=== PATIENT | female | born 1955 | race Caucasian/White ===

== ENCOUNTER 2016-11-16 19:54 | Inpatient (IN) | payer MEDICARE, MEDICAID ==
[2016-11-16 20:32] LABS: Hematocrit 43 % (35-47); Hemoglobin 14.1 g/dl (12.0-16.0); Mean Corpuscular HGB Conc 33 g/dl (31-36); Mean Corpuscular Hemoglobin 28 pg (27-31); Mean Corpuscular Volume 86 fL (80-97); Mean Platelet Volume 9 um3 (7.4-10.4); Red Blood Count 4.98 10^6/ul (4.0-5.4); Red Cell Distribution Width 14 % (10.5-15); White Blood Count 19.4 10^3/ul (3.5-10.8)
[2016-11-16 20:36] LABS: Comments Flag Yes
[2016-11-16 20:49] LABS: Troponin I 0.03 ng/mL (<0.04)
[2016-11-16 20:50] LABS: Albumin 3.9 g/dL (3.2-5.2); BUN/Creatinine Ratio 23.1 (8-20); EGFR Non-African American 93.3 (>60); Globulin 3.4 g/dL (2-4); Potassium 3.9 mmol/L (3.5-5.0); Total Bilirubin 1.2 mg/dL (0.2-1.0); Total Protein 7.3 g/dL (6.4-8.9)
--- NOTE | 2016-11-16 20:50 | ED ---
Librado Starkey Benjamin, scribed for Nimesh Griffin MD on 11/16/16 at 2014 . Altered Mental Status - HPI Summary HPI Summary: 60yo female BIB EMS from home for intermittently becoming unresponsive throughout the day that has been worsening. Pt has hx of MS. Very limited information was obtained by EMT, and pts baseline neurological state is unknown exactly, but per friend pt is awake and somewhat responsive. Per EMT, pt was mildly hypoxic but afebrile en route. LEVEL 5 CAVEAT. - History Of Current Complaint Chief Complaint: EDRespiratoryDistress Stated Complaint: UNRESPONSIVE Time Seen by Provider: 11/16/16 20:06 Hx Obtained From: EMS Hx From Patient Unobtainable Due To: Altered Mental Status Onset/Duration: Unknown, Still Present Timing: Intermittent Severity Initially: Moderate Severity Currently: Moderate Character: Responsiveness Aggravating Factor(s): Unknown Alleviating Factor(s): Unknown PMH/Surg Hx/FS Hx/Imm Hx Endocrine/Hematology History: Reports: Hx Anticoagulant Therapy - coumadin Respiratory History: Reports: Hx Pneumonia, Other Respiratory Problems/ Disorders - MS Musculoskeletal History: Reports: Other Musculoskeletal History - MS Neurological History: Reports: Other Neuro Impairments/Disorders - ms Infectious Disease History: Unable to Obtain/Confirm Infectious Disease History: Denies: Traveled Outside the [place] in Last 30 Days - Family History Known Family History: Positive: Unknown - LEVEL 5 CAVEAT - Social History Occupation: Disabled Lives: Alone Alcohol Use: None Substance Use Type: Reports: None Review of Systems - ROS Summary Review of Systems Summary: LEVEL 5 CAVEAT All Other Systems Reviewed And Are Negative: No Physical Exam Triage Information Reviewed: Yes Vital Signs On Initial Exam: Initial Vitals Temp Pulse Resp BP Pulse Ox 99.3 F 99 16 95/70 95 11/16/16 19:54 11/16/16 19:54 11/16/16 19:54 11/16/16 19:54 11/16/16 19:54 Vital Signs Reviewed: Yes Appearance: Positive: No Pain Distress, Ill-Appearing, Thin Skin: Positive: Warm, Dry Eyes: Positive: JONATHAN ENT: Positive: Hearing grossly normal Neck: Positive: Supple Respiratory/Lung Sounds: Positive: Rhonchi - scattered diffuse bilat Cardiovascular: Positive: RRR Abdomen Description: Positive: Nontender, Soft Psychiatric: Positive: Other - slow to respond Diagnostics - Vital Signs Vital Signs Temp Pulse Resp BP Pulse Ox 11/16/16 19:54 99.3 F 99 16 95/70 95 - Laboratory Lab Results: Lab Results 11/16/16 11/16/16 11/16/16 Range/Units 20:20 20:20 20:20 WBC 19.4 H (3.5-10.8) 10^3/ul RBC 4.98 (4.0-5.4) 10^6/ul Hgb 14.1 (12.0-16.0) g/dl Hct 43 (35-47) % MCV 86 (80-97) fL MCH 28 (27-31) pg MCHC 33 (31-36) g/dl RDW 14 (10.5-15) % Plt Count 244 (150-450) 10^3/ul MPV 9 (7.4-10.4) um3 Neut % (Auto) 83.1 H (38-83) % Lymph % (Auto) 10.6 L (25-47) % [place] % (Auto) 5.7 (1-9) % Eos % (Auto) 0 (0-6) % Baso % (Auto) 0.6 (0-2) % Absolute Neuts (auto) 16.1 H (1.5-7.7) 10^3/ul Absolute Lymphs (auto) 2.1 (1.0-4.8) 10^3/ul Absolute Monos (auto) 1.1 H (0-0.8) 10^3/ul Absolute Eos (auto) 0 (0-0.6) 10^3/ul Absolute Basos (auto) 0.1 (0-0.2) 10^3/ul Absolute Nucleated RBC 0 10^3/ul Nucleated RBC % 0 D-Dimer, Quantitative < 200 (Less Than 230) ng/mL Lactic Acid 1.9 (0.5-2.0) mmol/L Result Diagrams: 11/16/16 20:20 11/16/16 20:20 Lab Statement: Any lab studies that have been ordered have been reviewed, and results considered in the medical decision making process. - EKG 1999. Cardiac Rate: Tachycardia - 100bpm EKG Rhythm: Sinus Tachycardia Altered Mental Statu Course/Dx - Course Course Of Treatment: Discussed with Dr. Maynard (hospitalist) at 2044. - Diagnoses Discharge Diagnoses: Pneumonia - Provider Notifications Instructed by Provider To: Admit As Inpatient Discharge - Discharge Plan Condition: Guarded Disposition: ADMITTED TO [facility] The documentation as recorded by the Librado anderson Benjamin accurately reflects the service I personally performed and the decisions made by me, Nimesh Griffin MD.
--- NOTE | 2016-11-16 21:06 | RAD ---
HISTORY: Shortness of breath COMPARISONS: March 09, 2013 VIEWS: 2: Frontal and lateral views of the chest. The patient is slightly obliqued to the right FINDINGS: CARDIOMEDIASTINAL SILHOUETTE: The cardiomediastinal silhouette is normal. JANIE: The janie are normal. PLEURA: The costophrenic angles are sharp. No pleural abnormalities are noted. LUNG PARENCHYMA: There is patchy alveolar opacification of the left lung base ABDOMEN: The upper abdomen is clear. There is no subphrenic gas. BONES AND SOFT TISSUES: No bone or soft tissue abnormalities are noted. OTHER: None. IMPRESSION: PATCHY LEFT BASILAR ATELECTASIS VERSUS EARLY CONSOLIDATION. RECOMMEND FOLLOW-UP UNTIL RESOLUTION TO EXCLUDE UNDERLYING PULMONARY PARENCHYMAL PATHOLOGY.
[2016-11-16 21:26] LABS: Add Diff/Slide Review? Slide Review Added
[2016-11-16 21:30] LABS: Immature Granulocytes 29 % (0-9); Neutrophil % 59 % (38-83); Toxic Granulation 1+
--- NOTE | 2016-11-16 21:30 | HP ---
H&P (Free Text) History and Physical: PCP: Terese John MD Date/Time of Evaluation: 11/16/2016 2100 CC: respiratory distress HPI: Mrs Butler is a 60YO female HX multiple sclerosis who is unable to give a history and whose baseline is uncertain. She will variably shake her head 'yes' , but it is uncertain as to whether this she understands the questions. Otherwise she does not follow commands and is non-verbal. She currently appears in no distress. Per ED staff EMS reported her /primary caregiver is out of town and a friend who has been watching her called EMS for respiratory issues. Upon their arrival her saO2 was found to be in the 80s. PMedHx (per records) pulmonary embolism 2011 multiple sclerosis Ambulatory Orders Nursing to reconcile via Rx/PCP in AM, no meds/med list with patient. Historically on rivaroxaban for HX PE, but uncertain now. Allergies per records: NKDA PSurgHx unobtainable SocHx: per records: negative for tobacco, alcohol, and recreational drugs; lives with her male domestic partner; full code status until able to further clarify as she is unable to inform FamHx: unobtainable ROS: as above, otherwise reviewed and all were negative Constitutional: NAD, normally developed, well-nourished white female older appearing than her reported age vitals: Vital Signs Temp 37.4 C 11/16/16 19:54 Pulse 99 11/16/16 20:14 Resp 17 11/16/16 20:14 BP 95/70 11/16/16 19:54 Pulse Ox 97 11/16/16 20:14 Intake & Output 11/15/16 11/16/16 11/16/16 23:59 11:59 23:59 Weight 47.627 kg HEENM: atraumatic; sclera/conjunctiva: non-icteric/clear; blephara: sunken; hearing: clinically intact; oropharynx: clear, mucosa tacky Neck: soft tissue: non-tender; thyroid: normal Pulmonary: diminished breath sounds B with coarse rhonchi RLL despite LLL abnormality on CXR, fair aeration, no accessory muscle use CV: RR/RR, normal S1S2, no carotid bruit, no jugular venous distention, 2+ B DP/ PT, no edema Abdominal: soft, non-distended, non-tender, no rebound/guarding/rigidity, normoactive bowel sounds, no hepatosplenomegaly or masses, no costovertebral angle tenderness Musculoskeletal: general: BLE ankle/knee contractures, L>R UE wrist/elbow contractures; gait: non-ambulatory at baseline Integumental: normal appearance and texture of exposed skin; no abdominal scars/ ostomy Psychiatric orientation: awake, alertness is difficult to assess but seems somewhat responsive, unable to assess orientation affect: flat mood: acquiescent eye contact: absent content: non-verbal, minimal responses: variably shakes head 'yes' only, not 'no', doesn't blink on request insight: unable to assess Testing: Lab Results 11/16/16 11/16/16 11/16/16 Range/Units 20:20 20:20 20:20 WBC 19.4 H (3.5-10.8) 10^3/ul RBC 4.98 (4.0-5.4) 10^6/ul Hgb 14.1 (12.0-16.0) g/dl Hct 43 (35-47) % MCV 86 (80-97) fL MCH 28 (27-31) pg MCHC 33 (31-36) g/dl RDW 14 (10.5-15) % Plt Count 244 (150-450) 10^3/ul MPV 9 (7.4-10.4) um3 Immature Gran % (Auto) 29 H (0-9) % Neut % (Auto) 83.1 H (38-83) % Lymph % (Auto) 10.6 L (25-47) % [place] % (Auto) 5.7 (1-9) % Eos % (Auto) 0 (0-6) % Baso % (Auto) 0.6 (0-2) % Absolute Neuts (auto) 16.1 H (1.5-7.7) 10^3/ul Absolute Lymphs (auto) 2.1 (1.0-4.8) 10^3/ul Absolute Monos (auto) 1.1 H (0-0.8) 10^3/ul Absolute Eos (auto) 0 (0-0.6) 10^3/ul Absolute Basos (auto) 0.1 (0-0.2) 10^3/ul Absolute Nucleated RBC 0 10^3/ul Neutrophils % 59 (38-83) % Band Neutrophils % 29 H (0-8) % Lymphocytes % 8 L (25-47) % Monocytes % 4 (0-13) % Nucleated RBC % 0 Toxic Granulation 1+ Normal RBC Morphology Not Reportable D-Dimer, Quantitative (Less Than 230) ng/mL Sodium 130 L (133-145) mmol/L Potassium 3.9 (3.5-5.0) mmol/L Chloride 102 (101-111) mmol/L Carbon Dioxide 19 L (22-32) mmol/L Anion Gap 9 (2-11) mmol/L BUN 15 (6-24) mg/dL Creatinine 0.65 (0.51-0.95) mg/dL Est GFR ( Amer) 120.0 (>60) Est GFR (Non-Af Amer) 93.3 (>60) BUN/Creatinine Ratio 23.1 H (8-20) Glucose 167 H (70-100) mg/dL Lactic Acid 1.9 (0.5-2.0) mmol/L Calcium 9.0 (8.6-10.3) mg/dL Total Bilirubin 1.20 H (0.2-1.0) mg/dL AST 48 H (13-39) U/L ALT 52 (7-52) U/L Alkaline Phosphatase 47 (34-104) U/L Troponin I 0.03 (<0.04) ng/mL Total Protein 7.3 (6.4-8.9) g/dL Albumin 3.9 (3.2-5.2) g/dL Globulin 3.4 (2-4) g/dL Albumin/Globulin Ratio 1.1 (1-3) // Range/Units 20:20 WBC (3.5-10.8) 10^3/ul RBC (4.0-5.4) 10^6/ul Hgb (12.0-16.0) g/dl Hct (35-47) % MCV (80-97) fL MCH (27-31) pg MCHC (31-36) g/dl RDW (10.5-15) % Plt Count (150-450) 10^3/ul MPV (7.4-10.4) um3 Immature Gran % (Auto) (0-9) % Neut % (Auto) (38-83) % Lymph % (Auto) (25-47) % [place] % (Auto) (1-9) % Eos % (Auto) (0-6) % Baso % (Auto) (0-2) % Absolute Neuts (auto) (1.5-7.7) 10^3/ul Absolute Lymphs (auto) (1.0-4.8) 10^3/ul Absolute Monos (auto) (0-0.8) 10^3/ul Absolute Eos (auto) (0-0.6) 10^3/ul Absolute Basos (auto) (0-0.2) 10^3/ul Absolute Nucleated RBC 10^3/ul Neutrophils % (38-83) % Band Neutrophils % (0-8) % Lymphocytes % (25-47) % Monocytes % (0-13) % Nucleated RBC % Toxic Granulation Normal RBC Morphology D-Dimer, Quantitative < 200 (Less Than 230) ng/mL Sodium (133-145) mmol/L Potassium (3.5-5.0) mmol/L Chloride (101-111) mmol/L Carbon Dioxide (22-32) mmol/L Anion Gap (2-11) mmol/L BUN (6-24) mg/dL Creatinine (0.51-0.95) mg/dL Est GFR ( Amer) (>60) Est GFR (Non-Af Amer) (>60) BUN/Creatinine Ratio (8-20) Glucose (70-100) mg/dL Lactic Acid (0.5-2.0) mmol/L Calcium (8.6-10.3) mg/dL Total Bilirubin (0.2-1.0) mg/dL AST (13-39) U/L ALT (7-52) U/L Alkaline Phosphatase (34-104) U/L Troponin I (<0.04) ng/mL Total Protein (6.4-8.9) g/dL Albumin (3.2-5.2) g/dL Globulin (2-4) g/dL Albumin/Globulin Ratio (1-3) ECG, personally reviewed: sinus tachycardia rate 100, no ischemia CXR, personally reviewed: IMPRESSION: PATCHY LEFT BASILAR ATELECTASIS VERSUS EARLY CONSOLIDATION. RECOMMEND FOLLOW-UP UNTIL RESOLUTION TO EXCLUDE UNDERLYING PULMONARY PARENCHYMAL PATHOLOGY. CT brain WO: ordered, pending Impression: 60F presenting with hypoxic respiratory failure 2nd LLL pneumonia, likely aspiration DIAGNOSIS & PLAN Primary hypoxic respiratory failure 2nd suspected LLL aspiration pneumonia : ICU monitoring : IVFs : IV ABX : supplemental oxygen : pressors not currently indicated, but may need : urine Legionella & S pneumo antigens : blood, urine, & sputum CXs : supportive care hypoNatremia, mild : 2nd LLL pneumonia & dehydration : IVFs, trend possible altered mental status : uncertain as to current baseline : check CT brain WO progressive MS : severe generalized debilitation : uncertain if new symptoms : close monitoring & attempt to contact family/friends in AM to determine current baseline elevated serum glucose : check A1c Secondary HX pulmonary embolism : d-dimer negative & clinical situation not suggestive : if still on and unable to take rivaroxaban PO by morning will need initiation of heparin GTT Admission Rational: inpatient for hypoxic respiratory failure 2nd LLL pneumonia in patient at high risk of mortality DVTp: rivaroxaban & SCDs Code Status: full, needs confirmation HCP: unable to determine at this time
[2016-11-16] MEDS ORDERED: Ondansetron INJ* 2 MG/ML VIAL IV PRN (22:59)
[2016-11-16] MEDS ORDERED: NS 0.9% 1000 ML* 1,000 ML IV SCH (23:00)
[2016-11-17] MEDS ORDERED: cefTRIAXone(*) 1 GM ADVAN ONE (00:06)
[2016-11-17] MEDS: cefTRIAXone VIAL(*) 1,000 MG in NS 0.9% 50 ML* 50 ML IVPB SCH ×2 (00:09→23:10)
[2016-11-17] MEDS: Azithromycin IV(*) 500 MG in NS 0.9% 250 ML* 250 ML IVPB SCH (01:14)
[2016-11-17] MEDS: NS 0.9% 1000 ML* 1,000 ML IV SCH ×2 (01:14→17:56)
[2016-11-17 03:00] LABS: Urine Bacteria 1+ (Absent); Urine Bilirubin Negative (Negative); Urine Glucose Negative (Negative); Urine Nitrite Positive (Negative)
[2016-11-17 06:48] LABS: Hematocrit 37 % (35-47); Hemoglobin 12.5 g/dl (12.0-16.0); Mean Corpuscular HGB Conc 34 g/dl (31-36); Mean Corpuscular Hemoglobin 29 pg (27-31); Mean Corpuscular Volume 86 fL (80-97); Mean Platelet Volume 9 um3 (7.4-10.4); Red Blood Count 4.32 10^6/ul (4.0-5.4); Red Cell Distribution Width 14 % (10.5-15); White Blood Count 15.8 10^3/ul (3.5-10.8)
[2016-11-17 07:08] LABS: BUN/Creatinine Ratio 27.1 (8-20); Calcium 8.3 mg/dL (8.6-10.3); EGFR African American 170.2 (>60); EGFR Non-African American 132.4 (>60); Potassium 3.6 mmol/L (3.5-5.0)
--- NOTE | 2016-11-17 07:32 | RAD ---
HISTORY: Altered mental status, history of multiple sclerosis COMPARISONS: March 09, 2013 TECHNIQUE: Multiple contiguous axial CT scans were obtained of the head without intravenous contrast. FINDINGS: HEMORRHAGE/INFARCT: There is no hemorrhage or acute infarct. MASSES/SHIFT: There is no mass or shift. EXTRA-AXIAL SPACES: There are no extra-axial fluid collections. SULCI AND VENTRICLES: There is diffuse and proportional enlargement of the sulci and ventricles. CEREBRUM: There is hypoattenuation of the periventricular and subcortical white matter. BRAINSTEM: There are no focal parenchymal abnormalities. CEREBELLUM: There are no focal parenchymal abnormalities. VESSELS: The vessels are grossly normal. PARANASAL SINUSES: The paranasal sinuses are clear. ORBITS: The orbits are unremarkable. BONES AND SOFT TISSUE: No bone or soft tissue abnormalities are noted. OTHER: None IMPRESSION: NO ACUTE INTRACRANIAL PATHOLOGY. DIFFUSE INVOLUTIONAL CHANGE WITH CHRONIC SMALL VESSEL ISCHEMIC CHANGES.
[2016-11-17] MEDS ORDERED: tiZANidine TAB* 2 MG PO PRN (10:37)
[2016-11-17] MEDS ORDERED: Baclofen TAB* 10 MG PO PRN (10:37)
--- NOTE | 2016-11-17 10:58 | PN ---
Subjective Date of Service: 11/17/16 Interval History: Seen and examined Discussed care with Rupert, pt's partner Pt alvin at baseline. Rupert notes her yes and no indications are not always reliable Pt unable to communicate at this time Objective Active Medications: Acetaminophen (Tylenol Supp*) 650 mg ND Q6H PRN PRN Reason: FEVER/PAIN Albuterol (Ventolin 2.5 Mg/3 Ml Neb.Kristy*) 2.5 mg INH Q2H PRN PRN Reason: SOB/WHEEZING Baclofen (Lioresal Tab*) 10 mg PO Q4H PRN PRN Reason: PAIN Sodium Chloride (Ns 0.9% 1000 Ml*) 1,000 mls @ 125 mls/hr IV PER RATE CHASIDY Last Admin: 11/17/16 01:14 Dose: 125 mls/hr Sodium Chloride (Ns 0.9% 1000 Ml*) 1,000 mls @ 0 mls/hr IV WIDE OPEN CHASIDY PRN Reason: Wide Open Stop: 11/17/16 23:01 Ceftriaxone Sodium 1,000 mg/ (Sodium Chloride) 50 mls @ 200 mls/hr IVPB Q24H CHASIDY Last Admin: 11/17/16 00:09 Dose: 200 mls/hr Azithromycin 500 mg/ Sodium (Chloride) 250 mls @ 250 mls/hr IVPB Q24H [facility] Last Admin: 11/17/16 01:14 Dose: 250 mls/hr Ondansetron HCl (Zofran Inj*) 4 mg IV Q6H PRN PRN Reason: NAUSEA Rivaroxaban (Xarelto (*)) 20 mg PO DAILY [facility] Tizanidine HCl (Zanaflex Tab*) 6 mg PO BID PRN PRN Reason: PAIN Vital Signs 11/16/16 11/16/16 11/16/16 23:25 23:30 23:33 Temperature 99.1 F Pulse Rate 95 83 Respiratory 17 16 Rate Blood Pressure 134/82 135/80 145/86 (mmHg) O2 Sat by Pulse 92 96 Oximetry 11/17/16 11/17/16 11/17/16 00:00 00:01 00:23 Temperature 99.1 F Pulse Rate 103 102 101 Respiratory 20 21 19 Rate Blood Pressure 146/79 146/79 (mmHg) O2 Sat by Pulse 86 86 95 Oximetry 11/17/16 11/17/16 11/17/16 00:30 00:48 01:00 Temperature Pulse Rate 96 97 84 Respiratory 18 19 14 Rate Blood Pressure 144/87 142/85 127/82 (mmHg) O2 Sat by Pulse 96 95 97 Oximetry 11/17/16 11/17/16 11/17/16 01:15 01:30 01:43 Temperature 97.8 F 99.4 F Pulse Rate 93 82 Respiratory 17 15 15 Rate Blood Pressure 140/86 145/86 (mmHg) O2 Sat by Pulse 96 97 Oximetry 11/17/16 11/17/16 11/17/16 01:45 01:53 02:00 Temperature 99.4 F 99.0 F Pulse Rate 87 90 Respiratory 14 15 Rate Blood Pressure 164/98 158/83 (mmHg) O2 Sat by Pulse 98 100 98 Oximetry 11/17/16 11/17/16 11/17/16 02:15 02:30 02:45 Temperature 99.3 F 99.2 F 99.3 F Pulse Rate 83 83 93 Respiratory 16 18 17 Rate Blood Pressure 156/113 166/95 157/86 (mmHg) O2 Sat by Pulse 99 100 98 Oximetry 11/17/16 11/17/16 11/17/16 03:00 03:15 03:30 Temperature 99.4 F 99.5 F 99.5 F Pulse Rate 99 87 84 Respiratory 18 14 14 Rate Blood Pressure 146/81 148/86 141/76 (mmHg) O2 Sat by Pulse 95 98 99 Oximetry 11/17/16 11/17/16 11/17/16 03:45 04:00 04:15 Temperature 99.4 F 99.5 F 99.7 F Pulse Rate 90 92 86 Respiratory 15 16 15 Rate Blood Pressure 160/89 156/88 152/80 (mmHg) O2 Sat by Pulse 99 98 99 Oximetry 11/17/16 11/17/16 11/17/16 04:30 04:45 05:00 Temperature 99.9 F 100.0 F 100.0 F Pulse Rate 83 90 86 Respiratory 14 15 15 Rate Blood Pressure 160/68 145/90 152/86 (mmHg) O2 Sat by Pulse 100 98 99 Oximetry 11/17/16 11/17/16 11/17/16 05:15 05:30 05:45 Temperature 100.1 F 99.9 F 99.8 F Pulse Rate 102 106 103 Respiratory 18 18 20 Rate Blood Pressure 150/81 147/81 140/81 (mmHg) O2 Sat by Pulse 97 96 96 Oximetry 11/17/16 11/17/16 11/17/16 06:00 06:15 06:30 Temperature 99.8 F 99.8 F 99.8 F Pulse Rate 102 98 104 Respiratory 20 18 20 Rate Blood Pressure 146/79 (mmHg) O2 Sat by Pulse 97 97 95 Oximetry 11/17/16 11/17/16 11/17/16 06:45 07:00 07:15 Temperature 99.8 F 99.8 F 99.9 F Pulse Rate 105 104 104 Respiratory 20 20 20 Rate Blood Pressure 143/82 (mmHg) O2 Sat by Pulse 96 96 96 Oximetry 11/17/16 11/17/16 11/17/16 07:30 07:41 07:45 Temperature 99.9 F 100.0 F Pulse Rate 103 105 Respiratory 20 18 19 Rate Blood Pressure (mmHg) O2 Sat by Pulse 96 96 Oximetry 11/17/16 11/17/16 11/17/16 08:00 08:15 08:30 Temperature 100.0 F 100.0 F 100.0 F Pulse Rate 101 105 95 Respiratory 19 21 20 Rate Blood Pressure 146/80 (mmHg) O2 Sat by Pulse 97 95 94 Oximetry 11/17/16 11/17/16 11/17/16 08:45 08:50 09:00 Temperature 100.1 F 100.3 F Pulse Rate 90 85 Respiratory 16 20 Rate Blood Pressure 143/73 (mmHg) O2 Sat by Pulse 96 96 98 Oximetry 11/17/16 11/17/16 11/17/16 09:15 09:30 09:45 Temperature 100.3 F 100.2 F 100.2 F Pulse Rate 104 105 101 Respiratory 20 19 21 Rate Blood Pressure (mmHg) O2 Sat by Pulse 93 87 91 Oximetry 11/17/16 11/17/16 11/17/16 10:00 10:15 10:30 Temperature 100.2 F 100.2 F 100.2 F Pulse Rate 103 103 106 Respiratory 20 21 21 Rate Blood Pressure 146/79 (mmHg) O2 Sat by Pulse 95 96 94 Oximetry Oxygen Devices in Use Now: High Flow Nasal Cannula Appearance: chronically ill, NAD Eyes: No Scleral Icterus, PERRLA Ears/Nose/Mouth/Throat: Mucous Membranes Moist Neck: NL Appearance and Movements; NL JVP, Trachea Midline Respiratory: Symmetrical Chest Expansion and Respiratory Effort, - - ronchi throughout Cardiovascular: RRR Abdominal: NL Sounds; No Tenderness; No Distention, No Hepatosplenomegaly Skin: No Rash or Ulcers Neurological: - - AOx0, contracted Result Diagrams: 11/17/16 06:28 11/17/16 06:28 Additional Lab and Data: Lab Results 11/16/16 11/16/16 11/16/16 Range/Units 20:20 20:20 20:20 WBC 19.4 H (3.5-10.8) 10^3/ul RBC 4.98 (4.0-5.4) 10^6/ul Hgb 14.1 (12.0-16.0) g/dl Hct 43 (35-47) % MCV 86 (80-97) fL MCH 28 (27-31) pg MCHC 33 (31-36) g/dl RDW 14 (10.5-15) % Plt Count 244 (150-450) 10^3/ul MPV 9 (7.4-10.4) um3 Neut % (Auto) 83.1 H (38-83) % Lymph % (Auto) 10.6 L (25-47) % [place] % (Auto) 5.7 (1-9) % Eos % (Auto) 0 (0-6) % Baso % (Auto) 0.6 (0-2) % Absolute Neuts (auto) 16.1 H (1.5-7.7) 10^3/ul Absolute Lymphs (auto) 2.1 (1.0-4.8) 10^3/ul Absolute Monos (auto) 1.1 H (0-0.8) 10^3/ul Absolute Eos (auto) 0 (0-0.6) 10^3/ul Absolute Basos (auto) 0.1 (0-0.2) 10^3/ul Absolute Nucleated RBC 0 10^3/ul Nucleated RBC % 0 D-Dimer, Quantitative < 200 (Less Than 230) ng/mL Lactic Acid 1.9 (0.5-2.0) mmol/L Microbiology and Other Data: Microbiology 11/17/16 01:30 Legionella Urinary Antigen - Final Urine Negative Legionella Streptococcus pneumoniae Ag Screen - Final Negative S. pneumo Antigen 11/17/16 01:30 Nasal Screen MRSA (PCR)(SNEHAL) - Final Nasal Mrsa Negative Assess/Plan/Problems-Billing Assessment: 60 F progressive MS, h/o PE p/w cough, fever, hypoxia suspected in setting of PNA - Patient Problems (1) Acute respiratory failure with hypoxia Comment: Suspect in setting of PNA on vapotherm CTX and azithro (2) Multiple sclerosis Comment: tizanidine and baclofen (3) Hx of pulmonary embolus Comment: charles
[2016-11-17] MEDS: Rivaroxaban TAB(*) 20 MG TAB PO SCH (12:04)
[2016-11-17] MEDS: Acetaminophen SUPP* 650 MG SUPP PR PRN (13:59)
[2016-11-17] MEDS ORDERED: Morphine INJ* 2 MG/ML 1 ML SYRINGE IV ONE (14:39)
[2016-11-18] MEDS: Azithromycin IV(*) 500 MG in NS 0.9% 250 ML* 250 ML IVPB SCH (01:10)
[2016-11-18 05:52] LABS: Hematocrit 37 % (35-47); Hemoglobin 11.9 g/dl (12.0-16.0); Mean Corpuscular HGB Conc 33 g/dl (31-36); Mean Corpuscular Hemoglobin 28 pg (27-31); Mean Corpuscular Volume 86 fL (80-97); Mean Platelet Volume 9 um3 (7.4-10.4); Red Blood Count 4.23 10^6/ul (4.0-5.4); Red Cell Distribution Width 14 % (10.5-15); White Blood Count 12.1 10^3/ul (3.5-10.8)
[2016-11-18 06:07] LABS: BUN/Creatinine Ratio 17.5 (8-20); Calcium 8.1 mg/dL (8.6-10.3); EGFR African American 210.1 (>60); EGFR Non-African American 163.4 (>60); Potassium 3.6 mmol/L (3.5-5.0)
[2016-11-18] MEDS: Morphine INJ* 2 MG/ML 1 ML SYRINGE IV PRN ×2 (08:05→19:54)
[2016-11-18] MEDS: Rivaroxaban TAB(*) 20 MG TAB PO SCH (08:05)
--- NOTE | 2016-11-18 11:20 | RAD ---
Indication: Shortness of breath. Severe MS. Concern for RIGHT lower lobe aspiration pneumonia. Hypoxic respiratory failure. Comparison: No relevant prior exams available on the [facility] PACS for comparison. Technique: Semierect AP 0130 hours Report: Bibasilar consolidation new compared with the previous exam is concerning for pneumonia. Probable small LEFT pleural effusion. Negative for pneumothorax. The heart, pulmonary vasculature, and mediastinal contours are unremarkable. IMPRESSION: New bibasilar airspace consolidation concerning for pneumonia. Small LEFT pleural effusion.
[2016-11-18] MEDS: NS 0.9% 1000 ML* 1,000 ML IV SCH ×2 (12:33→20:15)
[2016-11-18] MEDS: Acetaminophen SUPP* 650 MG SUPP PR PRN (13:24)
--- NOTE | 2016-11-18 14:53 | PN ---
Subjective Date of Service: 11/18/16 Interval History: Unable to verbalize blinks to indicate she is not in pain at the moment Objective Active Medications: Acetaminophen (Tylenol Supp*) 650 mg VA Q6H PRN PRN Reason: FEVER/PAIN Last Admin: 11/18/16 13:24 Dose: 650 mg Albuterol (Ventolin 2.5 Mg/3 Ml Neb.Kristy*) 2.5 mg INH Q2H PRN PRN Reason: SOB/WHEEZING Baclofen (Lioresal Tab*) 10 mg PO Q4H PRN PRN Reason: PAIN Sodium Chloride (Ns 0.9% 1000 Ml*) 1,000 mls @ 125 mls/hr IV PER RATE [facility] Last Admin: 11/18/16 12:33 Dose: 125 mls/hr Ceftriaxone Sodium 1,000 mg/ (Sodium Chloride) 50 mls @ 200 mls/hr IVPB Q24H [facility] Last Admin: 11/17/16 23:10 Dose: 200 mls/hr Azithromycin 500 mg/ Sodium (Chloride) 250 mls @ 250 mls/hr IVPB Q24H [facility] Last Admin: 11/18/16 01:10 Dose: 250 mls/hr Morphine Sulfate (Morphine Inj (Syringe)*) 2 mg IV Q4H PRN PRN Reason: PAIN Last Admin: 11/18/16 08:05 Dose: 2 mg Ondansetron HCl (Zofran Inj*) 4 mg IV Q6H PRN PRN Reason: NAUSEA Rivaroxaban (Xarelto (*)) 20 mg PO 0900 [facility] Last Admin: 11/18/16 08:05 Dose: 20 mg Tizanidine HCl (Zanaflex Tab*) 6 mg PO BID PRN PRN Reason: PAIN Vital Signs 11/17/16 11/17/16 11/17/16 15:00 15:15 15:30 Temperature 101.7 F 101.6 F 101.5 F Pulse Rate 101 106 106 Respiratory 18 19 19 Rate Blood Pressure 153/78 (mmHg) O2 Sat by Pulse 96 97 99 Oximetry 11/17/16 11/17/16 11/17/16 15:45 16:00 16:15 Temperature 101.5 F 101.5 F 101.4 F Pulse Rate 99 103 106 Respiratory 18 17 17 Rate Blood Pressure 148/77 (mmHg) O2 Sat by Pulse 99 99 97 Oximetry 11/17/16 11/17/16 11/17/16 16:26 16:30 16:45 Temperature 101.3 F 101.3 F Pulse Rate 93 87 Respiratory 16 15 Rate Blood Pressure (mmHg) O2 Sat by Pulse 96 97 98 Oximetry 11/17/16 11/17/16 11/17/16 17:00 17:15 17:30 Temperature 101.1 F 100.9 F 100.8 F Pulse Rate 106 108 107 Respiratory 19 21 19 Rate Blood Pressure 146/71 (mmHg) O2 Sat by Pulse 96 96 95 Oximetry 11/17/16 11/17/16 11/17/16 17:45 18:00 18:15 Temperature 100.7 F 100.7 F 100.8 F Pulse Rate 109 109 107 Respiratory 16 18 19 Rate Blood Pressure 159/80 (mmHg) O2 Sat by Pulse 95 95 95 Oximetry 11/17/16 11/17/16 11/17/16 18:30 18:45 19:00 Temperature 100.8 F 100.8 F 100.8 F Pulse Rate 111 107 105 Respiratory 19 20 19 Rate Blood Pressure 142/79 (mmHg) O2 Sat by Pulse 95 95 95 Oximetry 11/17/16 11/17/16 11/17/16 19:15 19:30 19:43 Temperature 100.8 F 100.9 F 100.6 F Pulse Rate 104 103 Respiratory 19 19 Rate Blood Pressure (mmHg) O2 Sat by Pulse 95 94 Oximetry 11/17/16 11/17/16 11/17/16 19:45 20:00 20:15 Temperature 100.9 F 100.8 F 100.8 F Pulse Rate 102 102 101 Respiratory 18 17 19 Rate Blood Pressure 150/75 (mmHg) O2 Sat by Pulse 95 95 96 Oximetry 11/17/16 11/17/16 11/17/16 20:30 20:45 21:00 Temperature 100.7 F 100.7 F 100.6 F Pulse Rate 101 98 101 Respiratory 18 18 19 Rate Blood Pressure 158/72 (mmHg) O2 Sat by Pulse 96 96 96 Oximetry 11/17/16 11/17/16 11/17/16 21:15 21:30 21:45 Temperature 100.7 F 100.7 F 100.8 F Pulse Rate 102 100 103 Respiratory 22 20 19 Rate Blood Pressure (mmHg) O2 Sat by Pulse 97 95 95 Oximetry 06/11/17/16 11/17/16 22:00 22:15 22:30 Temperature 100.8 F 100.8 F 100.8 F Pulse Rate 100 108 107 Respiratory 17 22 21 Rate Blood Pressure 153/76 (mmHg) O2 Sat by Pulse 93 88 93 Oximetry 11/17/16 11/17/16 11/17/16 22:45 23:00 23:15 Temperature 100.7 F 100.7 F 100.0 F Pulse Rate 105 102 101 Respiratory 20 19 20 Rate Blood Pressure 152/70 (mmHg) O2 Sat by Pulse 97 99 98 Oximetry 11/17/16 11/17/16 11/18/16 23:30 23:45 00:00 Temperature 98.4 F 98.7 F Pulse Rate 99 102 107 Respiratory 18 20 21 Rate Blood Pressure (mmHg) O2 Sat by Pulse 100 98 96 Oximetry 11/18/16 11/18/16 11/18/16 00:01 00:09 00:15 Temperature 96.0 F 97.0 F 98.8 F Pulse Rate 106 94 107 Respiratory 20 17 20 Rate Blood Pressure 152/82 (mmHg) O2 Sat by Pulse 95 97 96 Oximetry 11/18/16 11/18/16 11/18/16 00:30 00:45 01:00 Temperature 100.7 F 100.8 F 100.8 F Pulse Rate 108 108 113 Respiratory 22 19 21 Rate Blood Pressure 150/80 (mmHg) O2 Sat by Pulse 95 92 90 Oximetry 11/18/16 11/18/16 11/18/16 01:13 01:15 01:30 Temperature 100.8 F 100.9 F Pulse Rate 106 110 111 Respiratory 20 18 23 Rate Blood Pressure (mmHg) O2 Sat by Pulse 95 88 92 Oximetry 11/18/16 11/18/16 11/18/16 01:45 01:46 02:00 Temperature 101.1 F 101.3 F Pulse Rate 105 108 Respiratory 22 20 21 Rate Blood Pressure 134/75 (mmHg) O2 Sat by Pulse 95 96 Oximetry 11/18/16 11/18/16 11/18/16 02:15 02:30 02:45 Temperature 101.2 F 101.1 F 101.1 F Pulse Rate 110 112 100 Respiratory 20 20 19 Rate Blood Pressure (mmHg) O2 Sat by Pulse 95 96 95 Oximetry 11/18/16 11/18/16 11/18/16 03:00 03:15 03:30 Temperature 101.1 F 101.2 F 101.2 F Pulse Rate 110 104 107 Respiratory 21 20 21 Rate Blood Pressure 143/74 (mmHg) O2 Sat by Pulse 92 95 95 Oximetry 11/18/16 11/18/16 11/18/16 03:45 04:00 04:15 Temperature 101.1 F 101.0 F 100.9 F Pulse Rate 109 109 111 Respiratory 22 22 21 Rate Blood Pressure 133/75 (mmHg) O2 Sat by Pulse 93 94 93 Oximetry 11/18/16 11/18/16 11/18/16 04:30 04:45 05:00 Temperature 100.9 F 100.9 F 100.9 F Pulse Rate 113 104 105 Respiratory 23 19 21 Rate Blood Pressure 146/71 (mmHg) O2 Sat by Pulse 95 95 95 Oximetry 11/18/16 11/18/16 11/18/16 05:15 05:30 05:45 Temperature 100.9 F 101.0 F 101.0 F Pulse Rate 105 114 109 Respiratory 22 23 21 Rate Blood Pressure (mmHg) O2 Sat by Pulse 96 93 94 Oximetry 11/18/16 11/18/16 11/18/16 05:48 06:00 06:15 Temperature 101.0 F 101.1 F Pulse Rate 108 103 Respiratory 22 22 19 Rate Blood Pressure 138/71 (mmHg) O2 Sat by Pulse 96 97 Oximetry 11/18/16 11/18/16 11/18/16 06:30 06:45 07:00 Temperature 101.3 F 101.2 F 101.1 F Pulse Rate 105 105 110 Respiratory 19 19 21 Rate Blood Pressure 142/81 (mmHg) O2 Sat by Pulse 98 99 97 Oximetry 11/18/16 11/18/16 11/18/16 07:15 07:30 07:45 Temperature 100.9 F 100.8 F 100.7 F Pulse Rate 108 102 105 Respiratory 20 19 20 Rate Blood Pressure (mmHg) O2 Sat by Pulse 97 99 98 Oximetry 11/18/16 11/18/16 11/18/16 07:50 08:00 08:05 Temperature 100.6 F 100.5 F Pulse Rate 104 Respiratory 20 21 22 Rate Blood Pressure 134/70 (mmHg) O2 Sat by Pulse 99 Oximetry 11/18/16 11/18/16 11/18/16 08:15 08:30 08:45 Temperature 100.5 F 100.3 F 100.2 F Pulse Rate 106 105 105 Respiratory 19 20 19 Rate Blood Pressure (mmHg) O2 Sat by Pulse 94 97 92 Oximetry 11/18/16 11/18/16 11/18/16 08:56 09:00 09:15 Temperature 100.1 F 100.2 F Pulse Rate 105 94 Respiratory 19 17 Rate Blood Pressure 138/68 (mmHg) O2 Sat by Pulse 94 90 96 Oximetry 11/18/16 11/18/16 11/18/16 09:30 09:45 10:00 Temperature 100.2 F 100.3 F 100.3 F Pulse Rate 94 105 104 Respiratory 18 19 18 Rate Blood Pressure 149/71 (mmHg) O2 Sat by Pulse 95 95 94 Oximetry 11/18/16 11/18/16 11/18/16 10:15 10:30 10:45 Temperature 100.3 F 100.3 F 100.4 F Pulse Rate 103 100 105 Respiratory 18 19 18 Rate Blood Pressure (mmHg) O2 Sat by Pulse 94 93 96 Oximetry 11/18/16 11/18/16 11/18/16 11:00 11:15 11:27 Temperature 100.5 F 100.6 F Pulse Rate 105 108 Respiratory 19 20 18 Rate Blood Pressure 141/77 (mmHg) O2 Sat by Pulse 91 89 95 Oximetry 11/18/16 11/18/16 11/18/16 11:30 11:45 12:00 Temperature 100.8 F 100.9 F 102.1 F Pulse Rate 101 104 100 Respiratory 19 18 22 Rate Blood Pressure 144/70 (mmHg) O2 Sat by Pulse 91 91 91 Oximetry 11/18/16 11/18/16 11/18/16 12:15 12:30 12:45 Temperature 101.3 F 101.5 F 101.7 F Pulse Rate 105 113 108 Respiratory 21 22 20 Rate Blood Pressure (mmHg) O2 Sat by Pulse 92 98 96 Oximetry 11/18/16 11/18/16 11/18/16 13:00 13:15 13:30 Temperature 101.9 F 102.0 F 102.1 F Pulse Rate 101 100 111 Respiratory 22 22 21 Rate Blood Pressure 151/67 (mmHg) O2 Sat by Pulse 99 99 97 Oximetry 11/18/16 11/18/16 11/18/16 13:45 14:00 14:15 Temperature 102.0 F 102.0 F 101.9 F Pulse Rate 105 97 103 Respiratory 20 20 21 Rate Blood Pressure 134/63 (mmHg) O2 Sat by Pulse 99 100 98 Oximetry 11/18/16 14:30 Temperature 101.7 F Pulse Rate 106 Respiratory 22 Rate Blood Pressure (mmHg) O2 Sat by Pulse 98 Oximetry Oxygen Devices in Use Now: High Flow Nasal Cannula Appearance: NAD Eyes: No Scleral Icterus, PERRLA Ears/Nose/Mouth/Throat: Mucous Membranes Moist Neck: NL Appearance and Movements; NL JVP, Trachea Midline Respiratory: Symmetrical Chest Expansion and Respiratory Effort, - - decreased Cardiovascular: RRR Abdominal: NL Sounds; No Tenderness; No Distention, No Hepatosplenomegaly Extremities: - - contracted Skin: No Rash or Ulcers Neurological: - - makes eye contact, responds to some requests to blink yes or no but not others Result Diagrams: 11/18/16 05:30 11/18/16 05:30 Additional Lab and Data: Lab Results 11/16/16 11/16/16 11/16/16 Range/Units 20:20 20:20 20:20 WBC 19.4 H (3.5-10.8) 10^3/ul RBC 4.98 (4.0-5.4) 10^6/ul Hgb 14.1 (12.0-16.0) g/dl Hct 43 (35-47) % MCV 86 (80-97) fL MCH 28 (27-31) pg MCHC 33 (31-36) g/dl RDW 14 (10.5-15) % Plt Count 244 (150-450) 10^3/ul MPV 9 (7.4-10.4) um3 Neut % (Auto) 83.1 H (38-83) % Lymph % (Auto) 10.6 L (25-47) % [place] % (Auto) 5.7 (1-9) % Eos % (Auto) 0 (0-6) % Baso % (Auto) 0.6 (0-2) % Absolute Neuts (auto) 16.1 H (1.5-7.7) 10^3/ul Absolute Lymphs (auto) 2.1 (1.0-4.8) 10^3/ul Absolute Monos (auto) 1.1 H (0-0.8) 10^3/ul Absolute Eos (auto) 0 (0-0.6) 10^3/ul Absolute Basos (auto) 0.1 (0-0.2) 10^3/ul Absolute Nucleated RBC 0 10^3/ul Nucleated RBC % 0 D-Dimer, Quantitative < 200 (Less Than 230) ng/mL Lactic Acid 1.9 (0.5-2.0) mmol/L Microbiology and Other Data: Microbiology 11/17/16 01:30 Legionella Urinary Antigen - Final Urine Negative Legionella Streptococcus pneumoniae Ag Screen - Final Negative S. pneumo Antigen 11/17/16 01:30 Nasal Screen MRSA (PCR)(SNEHAL) - Final Nasal Mrsa Negative Assess/Plan/Problems-Billing Assessment: 60 F progressive MS, h/o PE p/w cough, fever, hypoxia suspected in setting of PNA - Patient Problems (1) Acute respiratory failure with hypoxia Comment: Suspect in setting of PNA on vapotherm CTX and azithro fevers continue but WBC and bandemia improving (2) Multiple sclerosis Comment: tizanidine and baclofen morphine (3) Hx of pulmonary embolus Comment: charles
[2016-11-18] MEDS ORDERED: Citalopram TAB* 20 MG PO SCH (21:00)
[2016-11-18] MEDS: cefTRIAXone VIAL(*) 1,000 MG in NS 0.9% 50 ML* 50 ML IVPB SCH (23:42)
[2016-11-19] MEDS: Morphine INJ* 2 MG/ML 1 ML SYRINGE IV PRN ×3 (01:19→16:35)
[2016-11-19] MEDS: Azithromycin IV(*) 500 MG in NS 0.9% 250 ML* 250 ML IVPB SCH (01:21)
[2016-11-19 05:08] LABS: Hematocrit 32 % (35-47); Hemoglobin 10.8 g/dl (12.0-16.0); Mean Corpuscular HGB Conc 34 g/dl (31-36); Mean Corpuscular Hemoglobin 29 pg (27-31); Mean Corpuscular Volume 86 fL (80-97); Mean Platelet Volume 9 um3 (7.4-10.4); Red Blood Count 3.76 10^6/ul (4.0-5.4); Red Cell Distribution Width 14 % (10.5-15); White Blood Count 7.9 10^3/ul (3.5-10.8)
[2016-11-19] MEDS: NS 0.9% 1000 ML* 1,000 ML IV SCH ×2 (06:46→14:51)
[2016-11-19] MEDS: Rivaroxaban TAB(*) 20 MG TAB PO SCH (09:08)
[2016-11-19] MEDS: Acetaminophen SUPP* 650 MG SUPP PR PRN (16:28)
--- NOTE | 2016-11-19 16:55 | PN ---
Subjective Date of Service: 11/19/16 Interval History: Blinks to indicate pain when asked Titrated off vapotherm this morning unable to make needs known Objective Active Medications: Acetaminophen (Tylenol Supp*) 650 mg [place] Q6H PRN PRN Reason: FEVER/PAIN Last Admin: 11/19/16 16:28 Dose: 650 mg Albuterol (Ventolin 2.5 Mg/3 Ml Neb.Kristy*) 2.5 mg INH Q2H PRN PRN Reason: SOB/WHEEZING Baclofen (Lioresal Tab*) 10 mg PO Q4H PRN PRN Reason: PAIN Last Admin: 11/19/16 09:08 Dose: 10 mg Citalopram Hydrobromide (Celexa Tab*) 20 mg PO BEDTIME [facility] Last Admin: 11/18/16 22:00 Dose: 20 mg Sodium Chloride (Ns 0.9% 1000 Ml*) 1,000 mls @ 125 mls/hr IV PER RATE [facility] Last Admin: 11/19/16 14:51 Dose: 125 mls/hr Ceftriaxone Sodium 1,000 mg/ (Sodium Chloride) 50 mls @ 200 mls/hr IVPB Q24H [facility] Last Admin: 11/18/16 23:42 Dose: 200 mls/hr Azithromycin 500 mg/ Sodium (Chloride) 250 mls @ 250 mls/hr IVPB Q24H [facility] Last Admin: 11/19/16 01:21 Dose: 250 mls/hr Morphine Sulfate (Morphine Inj (Syringe)*) 2 mg IV Q4H PRN PRN Reason: PAIN Last Admin: 11/19/16 16:35 Dose: 2 mg Ondansetron HCl (Zofran Inj*) 4 mg IV Q6H PRN PRN Reason: NAUSEA Rivaroxaban (Xarelto (*)) 20 mg PO 0900 [facility] Last Admin: 11/19/16 09:08 Dose: 20 mg Tizanidine HCl (Zanaflex Tab*) 6 mg PO BID PRN PRN Reason: PAIN Last Admin: 11/19/16 12:11 Dose: 6 mg Vital Signs 11/18/16 11/18/16 11/18/16 17:00 17:15 17:30 Temperature 100.7 F 100.6 F 100.5 F Pulse Rate 102 100 101 Respiratory 23 21 21 Rate Blood Pressure 150/72 (mmHg) O2 Sat by Pulse 99 98 99 Oximetry 06/15/17 06/15/17 06/15/17 17:45 18:00 18:15 Temperature 100.5 F 100.4 F 100.4 F Pulse Rate 99 106 100 Respiratory 21 21 22 Rate Blood Pressure 156/71 (mmHg) O2 Sat by Pulse 98 99 100 Oximetry 11/18/16 11/18/16 11/18/16 18:30 18:45 19:00 Temperature 100.4 F 100.4 F 100.4 F Pulse Rate 97 98 99 Respiratory 20 21 21 Rate Blood Pressure 155/71 (mmHg) O2 Sat by Pulse 100 100 100 Oximetry 11/18/16 11/18/16 11/18/16 19:15 19:30 19:38 Temperature 100.4 F 100.3 F 100.4 F Pulse Rate 99 101 Respiratory 23 21 Rate Blood Pressure (mmHg) O2 Sat by Pulse 100 100 Oximetry 11/18/16 11/18/16 11/18/16 19:45 19:54 20:00 Temperature 100.3 F 100.3 F Pulse Rate 96 97 Respiratory 20 20 19 Rate Blood Pressure 145/69 (mmHg) O2 Sat by Pulse 100 99 Oximetry 11/18/16 11/18/16 11/18/16 20:15 20:30 20:45 Temperature 100.4 F 100.4 F 100.4 F Pulse Rate 91 89 86 Respiratory 17 17 17 Rate Blood Pressure (mmHg) O2 Sat by Pulse 100 100 100 Oximetry 11/18/16 11/18/16 11/18/16 21:00 21:09 21:10 Temperature 100.3 F Pulse Rate 89 92 92 Respiratory 18 16 19 Rate Blood Pressure 141/67 (mmHg) O2 Sat by Pulse 100 99 99 Oximetry 11/18/16 11/18/16 11/18/16 21:15 21:30 21:45 Temperature 100.2 F 100.2 F 100.3 F Pulse Rate 91 89 92 Respiratory 18 19 19 Rate Blood Pressure (mmHg) O2 Sat by Pulse 100 100 100 Oximetry 11/18/16 11/18/16 11/18/16 22:00 22:03 22:15 Temperature 100.3 F 100.3 F 100.3 F Pulse Rate 93 91 90 Respiratory 18 18 18 Rate Blood Pressure 136/73 (mmHg) O2 Sat by Pulse 100 100 100 Oximetry 11/18/16 11/18/16 11/18/16 22:30 22:45 23:00 Temperature 100.3 F 100.3 F 100.4 F Pulse Rate 93 91 95 Respiratory 20 20 19 Rate Blood Pressure 144/68 (mmHg) O2 Sat by Pulse 100 100 100 Oximetry 11/18/16 11/18/16 11/18/16 23:15 23:30 23:31 Temperature 100.5 F 100.6 F 100.4 F Pulse Rate 95 94 Respiratory 22 20 Rate Blood Pressure (mmHg) O2 Sat by Pulse 99 100 Oximetry 11/18/16 11/19/16 11/19/16 23:45 00:00 00:01 Temperature 100.7 F 100.8 F Pulse Rate 90 98 Respiratory 22 22 Rate Blood Pressure 155/78 (mmHg) O2 Sat by Pulse 100 100 Oximetry 11/19/16 11/19/16 11/19/16 00:15 00:30 00:45 Temperature 100.3 F Pulse Rate 95 90 85 Respiratory 22 22 20 Rate Blood Pressure (mmHg) O2 Sat by Pulse 100 100 100 Oximetry 11/19/16 11/19/16 11/19/16 01:00 01:15 01:19 Temperature Pulse Rate 83 99 Respiratory 20 24 21 Rate Blood Pressure 141/72 (mmHg) O2 Sat by Pulse 100 100 Oximetry 11/19/16 11/19/16 11/19/16 01:30 01:45 02:00 Temperature Pulse Rate 90 96 91 Respiratory 19 20 20 Rate Blood Pressure 131/65 (mmHg) O2 Sat by Pulse 100 100 100 Oximetry 11/19/16 11/19/16 11/19/16 02:15 02:30 02:45 Temperature Pulse Rate 90 104 93 Respiratory 19 18 19 Rate Blood Pressure (mmHg) O2 Sat by Pulse 100 97 100 Oximetry 11/19/16 11/19/16 11/19/16 03:00 03:15 03:30 Temperature Pulse Rate 88 103 91 Respiratory 20 20 20 Rate Blood Pressure 118/61 (mmHg) O2 Sat by Pulse 100 100 100 Oximetry 11/19/16 11/19/16 11/19/16 03:34 03:45 04:00 Temperature 97.2 F Pulse Rate 85 86 Respiratory 19 19 Rate Blood Pressure 117/61 (mmHg) O2 Sat by Pulse 100 100 Oximetry 11/19/16 11/19/16 11/19/16 04:15 04:30 04:45 Temperature Pulse Rate 84 97 98 Respiratory 19 20 21 Rate Blood Pressure (mmHg) O2 Sat by Pulse 100 100 99 Oximetry 11/19/16 11/19/16 11/19/16 05:00 05:15 05:30 Temperature Pulse Rate 96 85 97 Respiratory 19 18 22 Rate Blood Pressure 140/69 (mmHg) O2 Sat by Pulse 100 100 100 Oximetry 11/19/16 11/19/16 11/19/16 05:45 06:00 06:15 Temperature Pulse Rate 88 91 88 Respiratory 18 18 18 Rate Blood Pressure 143/69 (mmHg) O2 Sat by Pulse 100 100 100 Oximetry 11/19/16 11/19/16 11/19/16 06:30 06:45 07:00 Temperature Pulse Rate 92 87 84 Respiratory 18 18 18 Rate Blood Pressure 126/62 (mmHg) O2 Sat by Pulse 100 100 100 Oximetry 11/19/16 11/19/16 11/19/16 07:15 07:30 07:36 Temperature 99.2 F Pulse Rate 85 84 Respiratory 18 18 Rate Blood Pressure (mmHg) O2 Sat by Pulse 100 100 Oximetry 11/19/16 11/19/16 11/19/16 07:45 08:00 08:15 Temperature Pulse Rate 80 85 83 Respiratory 17 18 17 Rate Blood Pressure 128/65 (mmHg) O2 Sat by Pulse 100 100 100 Oximetry 11/19/16 11/19/16 11/19/16 08:30 08:45 08:52 Temperature Pulse Rate 101 78 89 Respiratory 20 17 18 Rate Blood Pressure (mmHg) O2 Sat by Pulse 98 100 100 Oximetry 11/19/16 11/19/16 11/19/16 09:00 09:15 09:30 Temperature Pulse Rate 87 94 101 Respiratory 18 19 20 Rate Blood Pressure 138/66 (mmHg) O2 Sat by Pulse 100 100 100 Oximetry 11/19/16 11/19/16 11/19/16 09:52 10:00 10:15 Temperature Pulse Rate 104 90 104 Respiratory 20 18 20 Rate Blood Pressure (mmHg) O2 Sat by Pulse 97 100 100 Oximetry 11/19/16 11/19/16 11/19/16 10:30 10:45 11:00 Temperature Pulse Rate 108 106 103 Respiratory 21 21 20 Rate Blood Pressure (mmHg) O2 Sat by Pulse 97 96 97 Oximetry 11/19/16 11/19/16 11/19/16 11:10 11:15 11:30 Temperature 99.9 F Pulse Rate 99 97 Respiratory 19 21 Rate Blood Pressure (mmHg) O2 Sat by Pulse 98 98 Oximetry 11/19/16 11/19/16 11/19/16 11:34 11:45 11:54 Temperature Pulse Rate 100 98 95 Respiratory 18 21 19 Rate Blood Pressure 146/72 (mmHg) O2 Sat by Pulse 97 94 95 Oximetry 11/19/16 11/19/16 11/19/16 12:00 12:15 12:30 Temperature Pulse Rate 96 97 90 Respiratory 19 17 18 Rate Blood Pressure 149/74 (mmHg) O2 Sat by Pulse 94 96 97 Oximetry 11/19/16 11/19/16 11/19/16 12:45 13:00 13:15 Temperature Pulse Rate 87 91 94 Respiratory 16 18 19 Rate Blood Pressure 143/74 (mmHg) O2 Sat by Pulse 98 98 97 Oximetry 11/19/16 11/19/16 11/19/16 13:30 13:45 14:00 Temperature Pulse Rate 94 96 97 Respiratory 19 20 20 Rate Blood Pressure 152/70 (mmHg) O2 Sat by Pulse 98 96 95 Oximetry 11/19/16 11/19/16 11/19/16 14:15 15:00 15:39 Temperature 101.2 F Pulse Rate 96 Respiratory 20 20 Rate Blood Pressure (mmHg) O2 Sat by Pulse 94 Oximetry 11/19/16 11/19/16 16:00 16:35 Temperature Pulse Rate Respiratory 22 Rate Blood Pressure (mmHg) O2 Sat by Pulse 93 Oximetry Oxygen Devices in Use Now: Simple Face Mask - salter Appearance: chronically ill, NAD Eyes: No Scleral Icterus, PERRLA Ears/Nose/Mouth/Throat: Mucous Membranes Moist Neck: NL Appearance and Movements; NL JVP, Trachea Midline Respiratory: Symmetrical Chest Expansion and Respiratory Effort, - - decreased BS b/l Cardiovascular: RRR Abdominal: NL Sounds; No Tenderness; No Distention, No Hepatosplenomegaly Lymphatic: No Cervical Adenopathy Extremities: No Edema, No Clubbing, Cyanosis, - - contracted Neurological: - - blinks to indicate pain. Does not do so consistently Result Diagrams: 11/19/16 05:00 11/18/16 05:30 Additional Lab and Data: Lab Results 11/16/16 11/16/16 11/16/16 Range/Units 20:20 20:20 20:20 WBC 19.4 H (3.5-10.8) 10^3/ul RBC 4.98 (4.0-5.4) 10^6/ul Hgb 14.1 (12.0-16.0) g/dl Hct 43 (35-47) % MCV 86 (80-97) fL MCH 28 (27-31) pg MCHC 33 (31-36) g/dl RDW 14 (10.5-15) % Plt Count 244 (150-450) 10^3/ul MPV 9 (7.4-10.4) um3 Neut % (Auto) 83.1 H (38-83) % Lymph % (Auto) 10.6 L (25-47) % [place] % (Auto) 5.7 (1-9) % Eos % (Auto) 0 (0-6) % Baso % (Auto) 0.6 (0-2) % Absolute Neuts (auto) 16.1 H (1.5-7.7) 10^3/ul Absolute Lymphs (auto) 2.1 (1.0-4.8) 10^3/ul Absolute Monos (auto) 1.1 H (0-0.8) 10^3/ul Absolute Eos (auto) 0 (0-0.6) 10^3/ul Absolute Basos (auto) 0.1 (0-0.2) 10^3/ul Absolute Nucleated RBC 0 10^3/ul Nucleated RBC % 0 D-Dimer, Quantitative < 200 (Less Than 230) ng/mL Lactic Acid 1.9 (0.5-2.0) mmol/L Microbiology and Other Data: Microbiology 11/17/16 01:30 Legionella Urinary Antigen - Final Urine Negative Legionella Streptococcus pneumoniae Ag Screen - Final Negative S. pneumo Antigen 11/17/16 01:30 Nasal Screen MRSA (PCR)([facility]) - Final Nasal Mrsa Negative Assess/Plan/Problems-Billing Assessment: 60 F progressive MS, h/o PE p/w cough, fever, hypoxia suspected in setting of PNA - Patient Problems (1) Acute respiratory failure with hypoxia Comment: Possible aspiration PNA in setting of advanced MS Fevers improved but returned later in day Add flagyl TID c/w CTX and azithro titrated off vapotherm (2) Multiple sclerosis Comment: tizanidine and baclofen morphine (3) Hx of pulmonary embolus Comment: charles
[2016-11-19] MEDS: metroNIDAZOLE IV 500 MG/100ML* 500 MG/100 ML BAG IVPB SCH (17:13)
[2016-11-19] MEDS: CITALOPRAM PO SCH (20:51)
--- NOTE | 2016-11-19 21:30 | PN ---
Hospitalist Progress Note Night nurse noted aspiration with liquid medication this evening. Diet ordered changed to nectar thickened liquids and requested swallow eval from speech therapy when next available.
[2016-11-19] MEDS: cefTRIAXone VIAL(*) 1,000 MG in NS 0.9% 50 ML* 50 ML IVPB SCH (23:36)
[2016-11-20] MEDS: NS 0.9% 1000 ML* 1,000 ML IV SCH ×2 (00:55→14:05)
[2016-11-20] MEDS: Azithromycin IV(*) 500 MG in NS 0.9% 250 ML* 250 ML IVPB SCH (01:06)
[2016-11-20] MEDS: metroNIDAZOLE IV 500 MG/100ML* 500 MG/100 ML BAG IVPB SCH ×3 (02:14→16:56)
[2016-11-20] MEDS: Morphine INJ* 2 MG/ML 1 ML SYRINGE IV PRN ×2 (07:49→23:15)
[2016-11-20] MEDS: Acetaminophen SUPP* 650 MG SUPP PR PRN (07:50)
[2016-11-20 07:51] LABS: FIO2 12
[2016-11-20] MEDS ORDERED: Vancomycin per Pharmacy* NOTE FOLLOW UP PRN (07:52)
[2016-11-20 07:53] LABS: PCO2 Arterial 27 mmHg (35-45)
[2016-11-20] MEDS ORDERED: Vancomycin(*) 1,000 MG in NS 0.9% 250 ML* 250 ML IVPB ONE (08:00)
[2016-11-20] MEDS: Rivaroxaban TAB(*) 20 MG TAB PO SCH (08:43)
--- NOTE | 2016-11-20 11:15 | RAD ---
INDICATION: Hypoxemia COMPARISON: Similar chest x-ray dated November 18, 2016 TECHNIQUE: Single AP portable view of the chest was obtained. FINDINGS: Image quality is compromised due to the relative inferiority of a portable chest x-ray. The heart and mediastinum exhibit normal size and contour. Again seen is left lung basilar density obscuring the diaphragm and causing costophrenic angle blunting. There is improved aeration otherwise the left lung relative to the November 18, 2016 chest x-ray. There is no evidence of a large pleural effusion. Visualized bones are normal for the patient's age. IMPRESSION: Persistent density at the left lung base obscures the diaphragm and causes left costophrenic angle blunting but there has been interval improvement in the degree of aeration when compared to the November 18, 2016 chest x-ray.
[2016-11-20] MEDS: Vancomycin(*) 1,000 MG in NS 0.9% 250 ML* 250 ML IVPB SCH ×2 (14:02→21:27)
--- NOTE | 2016-11-20 16:59 | PN ---
Subjective Date of Service: 11/20/16 Interval History: Events reviewed. Witnessed to aspirate yesterday and diet adjusted. This AM noted to be increasingly tachypneic. Vanocmycin added to medication. Transferred back to ICU for vapotherm. Seen on floor and again in ICU. Much more comfortable with on vapotherm without use of accessory muscles. unable to make needs known Objective Active Medications: Acetaminophen (Tylenol Supp*) 650 mg [place] Q6H PRN PRN Reason: FEVER/PAIN Last Admin: 11/20/16 07:50 Dose: 650 mg Albuterol (Ventolin 2.5 Mg/3 Ml Neb.Kristy*) 2.5 mg INH Q2H PRN PRN Reason: SOB/WHEEZING Baclofen (Lioresal Tab*) 10 mg PO Q4H PRN PRN Reason: PAIN Last Admin: 11/19/16 09:08 Dose: 10 mg Citalopram Hydrobromide (Citalopram Kristy*) 20 mg PO BEDTIME CHASIDY Last Admin: 11/19/16 20:51 Dose: 20 mg Sodium Chloride (Ns 0.9% 1000 Ml*) 1,000 mls @ 125 mls/hr IV PER RATE CHASIDY Last Admin: 11/20/16 14:05 Dose: 125 mls/hr Ceftriaxone Sodium 1,000 mg/ (Sodium Chloride) 50 mls @ 200 mls/hr IVPB Q24H [facility]Y Last Admin: 11/19/16 23:36 Dose: 200 mls/hr Azithromycin 500 mg/ Sodium (Chloride) 250 mls @ 250 mls/hr IVPB Q24H [facility] Last Admin: 11/20/16 01:06 Dose: 250 mls/hr Metronidazole/Sodium Chloride (Flagyl 500 Mg Ivpb*) 500 mg in 100 mls @ 100 mls /hr IVPB Q8H [facility] Last Admin: 11/20/16 10:00 Dose: 100 mls/hr Vancomycin HCl 1,000 mg/ (Sodium Chloride) 250 mls @ 166.667 mls/hr IVPB Q8H [facility] Last Admin: 11/20/16 14:02 Dose: 166.667 mls/hr Morphine Sulfate (Morphine Inj (Syringe)*) 2 mg IV Q4H PRN PRN Reason: PAIN Last Admin: 11/20/16 07:49 Dose: 2 mg Ondansetron HCl (Zofran Inj*) 4 mg IV Q6H PRN PRN Reason: NAUSEA Pharmacy Consult (Vancomycin Per Pharmacy*) 1 note FOLLOW UP . PRN PRN Reason: PER PROTOCOL Pharmacy Profile Note (Vancomycin Trough Check) 1 note FOLLOW UP 529 ONE Stop: 11/21/16 05:31 Rivaroxaban (Xarelto (*)) 20 mg PO 0900 CHASIDY Last Admin: 11/20/16 08:43 Dose: 20 mg Tizanidine HCl (Zanaflex Tab*) 6 mg PO BID PRN PRN Reason: PAIN Last Admin: 11/19/16 12:11 Dose: 6 mg Vital Signs 11/19/16 11/19/16 11/19/16 17:00 17:15 17:30 Temperature Pulse Rate 92 87 83 Respiratory 18 17 17 Rate Blood Pressure 156/70 (mmHg) O2 Sat by Pulse 90 96 96 Oximetry 11/19/16 11/19/16 11/19/16 17:45 18:00 18:51 Temperature 100.6 F Pulse Rate 84 95 100 Respiratory 18 19 Rate Blood Pressure 152/77 153/78 (mmHg) O2 Sat by Pulse 96 95 Oximetry 11/19/16 11/19/16 11/20/16 19:31 23:32 00:45 Temperature 100.6 F 99.5 F Pulse Rate 100 94 Respiratory 20 28 Rate Blood Pressure 153/78 150/62 (mmHg) O2 Sat by Pulse 93 83 92 Oximetry 11/20/16 11/20/16 11/20/16 07:49 07:50 08:00 Temperature 98.9 F Pulse Rate 92 Respiratory 36 36 36 Rate Blood Pressure 162/88 (mmHg) O2 Sat by Pulse 95 Oximetry 11/20/16 11/20/16 11/20/16 08:35 11:09 11:11 Temperature Pulse Rate 89 89 Respiratory 20 18 22 Rate Blood Pressure 157/78 (mmHg) O2 Sat by Pulse 96 98 Oximetry 11/20/16 11/20/16 11/20/16 11:15 11:30 11:40 Temperature Pulse Rate 80 78 Respiratory 18 17 22 Rate Blood Pressure 148/76 152/75 (mmHg) O2 Sat by Pulse 98 99 Oximetry 11/20/16 11/20/16 11/20/16 11:45 12:00 12:14 Temperature 98.9 F Pulse Rate 87 86 Respiratory 19 18 Rate Blood Pressure 142/85 152/81 (mmHg) O2 Sat by Pulse 99 99 Oximetry 11/20/16 11/20/16 11/20/16 12:15 12:30 12:45 Temperature Pulse Rate 86 89 89 Respiratory 19 19 19 Rate Blood Pressure (mmHg) O2 Sat by Pulse 99 98 99 Oximetry 11/20/16 11/20/16 11/20/16 13:00 13:15 13:30 Temperature Pulse Rate 87 87 89 Respiratory 19 19 19 Rate Blood Pressure 161/87 (mmHg) O2 Sat by Pulse 98 98 98 Oximetry 11/20/16 11/20/16 11/20/16 13:45 14:00 14:15 Temperature Pulse Rate 93 92 90 Respiratory 19 19 19 Rate Blood Pressure 163/84 (mmHg) O2 Sat by Pulse 99 99 99 Oximetry 11/20/16 11/20/16 11/20/16 14:30 14:45 15:00 Temperature Pulse Rate 92 90 88 Respiratory 20 21 20 Rate Blood Pressure 162/88 (mmHg) O2 Sat by Pulse 99 99 99 Oximetry 11/20/16 11/20/16 11/20/16 15:15 15:20 15:30 Temperature Pulse Rate 85 87 Respiratory 21 21 19 Rate Blood Pressure (mmHg) O2 Sat by Pulse 99 99 Oximetry 11/20/16 11/20/16 11/20/16 15:44 15:45 16:00 Temperature 98.4 F Pulse Rate 90 89 Respiratory 20 20 Rate Blood Pressure 165/83 (mmHg) O2 Sat by Pulse 99 99 Oximetry 11/20/16 11/20/16 11/20/16 16:05 16:15 16:29 Temperature Pulse Rate 91 Respiratory 20 20 Rate Blood Pressure (mmHg) O2 Sat by Pulse 99 99 Oximetry 11/20/16 11/20/16 16:30 16:45 Temperature Pulse Rate 89 89 Respiratory 19 22 Rate Blood Pressure (mmHg) O2 Sat by Pulse 99 99 Oximetry Oxygen Devices in Use Now: High Flow Nasal Cannula - vapotherm Appearance: chronically ill, NAD Eyes: No Scleral Icterus, PERRLA Ears/Nose/Mouth/Throat: Mucous Membranes Moist Neck: NL Appearance and Movements; NL JVP, Trachea Midline Respiratory: Symmetrical Chest Expansion and Respiratory Effort, - - decreased throughout Cardiovascular: RRR Abdominal: NL Sounds; No Tenderness; No Distention, No Hepatosplenomegaly Lymphatic: No Cervical Adenopathy Extremities: - - contracted Neurological: - - blinks to some questions Result Diagrams: 11/19/16 05:00 11/18/16 05:30 Additional Lab and Data: Lab Results 11/16/16 11/16/16 11/16/16 Range/Units 20:20 20:20 20:20 WBC 19.4 H (3.5-10.8) 10^3/ul RBC 4.98 (4.0-5.4) 10^6/ul Hgb 14.1 (12.0-16.0) g/dl Hct 43 (35-47) % MCV 86 (80-97) fL MCH 28 (27-31) pg MCHC 33 (31-36) g/dl RDW 14 (10.5-15) % Plt Count 244 (150-450) 10^3/ul MPV 9 (7.4-10.4) um3 Neut % (Auto) 83.1 H (38-83) % Lymph % (Auto) 10.6 L (25-47) % [place] % (Auto) 5.7 (1-9) % Eos % (Auto) 0 (0-6) % Baso % (Auto) 0.6 (0-2) % Absolute Neuts (auto) 16.1 H (1.5-7.7) 10^3/ul Absolute Lymphs (auto) 2.1 (1.0-4.8) 10^3/ul Absolute Monos (auto) 1.1 H (0-0.8) 10^3/ul Absolute Eos (auto) 0 (0-0.6) 10^3/ul Absolute Basos (auto) 0.1 (0-0.2) 10^3/ul Absolute Nucleated RBC 0 10^3/ul Nucleated RBC % 0 D-Dimer, Quantitative < 200 (Less Than 230) ng/mL Lactic Acid 1.9 (0.5-2.0) mmol/L Microbiology and Other Data: Microbiology 11/17/16 01:30 Legionella Urinary Antigen - Final Urine Negative Legionella Streptococcus pneumoniae Ag Screen - Final Negative S. pneumo Antigen 11/17/16 01:30 Nasal Screen MRSA (PCR)(SNEHAL) - Final Nasal Mrsa Negative Assess/Plan/Problems-Billing Assessment: 60 F progressive MS, h/o PE p/w cough, fever, hypoxia suspected in setting of PNA - Patient Problems (1) Acute respiratory failure with hypoxia Comment: suspect aspiration PNA in setting of advanced MS and after witnessed hospital event flagyl added 11/19 Vanco added 11/20 completed 10/08 azithromycin 11/20 improved on vapotherm Suspect titration off of vapotherm will be difficult. At this time her "partner " is the only known surrogate. He has been hesitant to engage in the hospital but has indicated she would "want to live in order to at home" (2) Multiple sclerosis Comment: tizanidine and baclofen morphine (3) Hx of pulmonary embolus Comment: charles
[2016-11-20] MEDS: CITALOPRAM PO SCH (21:25)
[2016-11-20] MEDS: cefTRIAXone VIAL(*) 1,000 MG in NS 0.9% 50 ML* 50 ML IVPB SCH (23:15)
[2016-11-21] MEDS: metroNIDAZOLE IV 500 MG/100ML* 500 MG/100 ML BAG IVPB SCH ×3 (00:41→17:16)
[2016-11-21] MEDS: NS 0.9% 1000 ML* 1,000 ML IV SCH (03:59)
[2016-11-21] MEDS ORDERED: Vancomycin Trough Check NOTE FOLLOW UP ONE (05:30)
[2016-11-21 05:50] LABS: EGFR African American 271.8 (>60); EGFR Non-African American 211.4 (>60)
[2016-11-21 06:16] LABS: Vancomycin Trough 11.1 mcg/mL
[2016-11-21] MEDS: Vancomycin(*) 1,000 MG in NS 0.9% 250 ML* 250 ML IVPB SCH (06:19)
--- NOTE | 2016-11-21 07:33 | PN ---
Subjective Date of Service: 11/21/16 Interval History: Patient denies pain with a head shake but nods "yes" when asked if she is hungry. She offers nothing on her own. Objective Active Medications: Acetaminophen (Tylenol Supp*) 650 mg [place] Q6H PRN PRN Reason: FEVER/PAIN Last Admin: 11/20/16 07:50 Dose: 650 mg Albuterol (Ventolin 2.5 Mg/3 Ml Neb.Kristy*) 2.5 mg INH Q2H PRN PRN Reason: SOB/WHEEZING Baclofen (Lioresal Tab*) 10 mg PO Q4H PRN PRN Reason: PAIN Last Admin: 11/19/16 09:08 Dose: 10 mg Citalopram Hydrobromide (Citalopram Kristy*) 20 mg PO BEDTIME CHASIDY Last Admin: 11/20/16 21:25 Dose: 20 mg Ceftriaxone Sodium 1,000 mg/ (Sodium Chloride) 50 mls @ 200 mls/hr IVPB Q24H CHASIDY Last Admin: 11/20/16 23:15 Dose: 200 mls/hr Metronidazole/Sodium Chloride (Flagyl 500 Mg Ivpb*) 500 mg in 100 mls @ 100 mls /hr IVPB Q8H [facility] Last Admin: 11/21/16 00:41 Dose: 100 mls/hr Potassium Chloride/Dextrose (D5w 1/2 Ns Kcl 20 Meq 1000 Ml*) 1,000 mls @ 75 mls /hr IV PER RATE CHASIDY Vancomycin HCl 1,250 mg/ (Sodium Chloride) 250 mls @ 166.667 mls/hr IVPB Q8H CHASIDY Morphine Sulfate (Morphine Inj (Syringe)*) 2 mg IV Q4H PRN PRN Reason: PAIN Last Admin: 11/20/16 23:15 Dose: 2 mg Ondansetron HCl (Zofran Inj*) 4 mg IV Q6H PRN PRN Reason: NAUSEA Pharmacy Consult (Vancomycin Per Pharmacy*) 1 note FOLLOW UP . PRN PRN Reason: PER PROTOCOL Pharmacy Profile Note (Vancomycin Trough Check) 1 note FOLLOW UP 1230 ONE Stop: 11/22/16 12:31 Rivaroxaban (Xarelto (*)) 20 mg PO 0900 CHASIDY Last Admin: 11/20/16 08:43 Dose: 20 mg Tizanidine HCl (Zanaflex Tab*) 6 mg PO BID PRN PRN Reason: PAIN Last Admin: 11/19/16 12:11 Dose: 6 mg Vital Signs 11/20/16 11/20/16 11/20/16 07:49 07:50 08:00 Temperature 98.9 F Pulse Rate 92 Respiratory 36 36 36 Rate Blood Pressure 162/88 (mmHg) O2 Sat by Pulse 95 Oximetry 11/20/16 11/20/16 11/20/16 08:35 11:09 11:11 Temperature Pulse Rate 89 89 Respiratory 20 18 22 Rate Blood Pressure 157/78 (mmHg) O2 Sat by Pulse 96 98 Oximetry 11/20/16 11/20/16 11/20/16 11:15 11:30 11:40 Temperature Pulse Rate 80 78 Respiratory 18 17 22 Rate Blood Pressure 148/76 152/75 (mmHg) O2 Sat by Pulse 98 99 Oximetry 11/20/16 11/20/16 11/20/16 11:45 12:00 12:14 Temperature 98.9 F Pulse Rate 87 86 Respiratory 19 18 Rate Blood Pressure 142/85 152/81 (mmHg) O2 Sat by Pulse 99 99 Oximetry 11/20/16 11/20/16 11/20/16 12:15 12:30 12:45 Temperature Pulse Rate 86 89 89 Respiratory 19 19 19 Rate Blood Pressure (mmHg) O2 Sat by Pulse 99 98 99 Oximetry 11/20/16 11/20/16 11/20/16 13:00 13:15 13:30 Temperature Pulse Rate 87 87 89 Respiratory 19 19 19 Rate Blood Pressure 161/87 (mmHg) O2 Sat by Pulse 98 98 98 Oximetry 11/20/16 11/20/16 11/20/16 13:45 14:00 14:15 Temperature Pulse Rate 93 92 90 Respiratory 19 19 19 Rate Blood Pressure 163/84 (mmHg) O2 Sat by Pulse 99 99 99 Oximetry 11/20/16 11/20/16 11/20/16 14:30 14:45 15:00 Temperature Pulse Rate 92 90 88 Respiratory 20 21 20 Rate Blood Pressure 162/88 (mmHg) O2 Sat by Pulse 99 99 99 Oximetry 11/20/16 11/20/16 11/20/16 15:15 15:20 15:30 Temperature Pulse Rate 85 87 Respiratory 21 21 19 Rate Blood Pressure (mmHg) O2 Sat by Pulse 99 99 Oximetry 11/20/16 11/20/16 11/20/16 15:44 15:45 16:00 Temperature 98.4 F Pulse Rate 90 89 Respiratory 20 20 Rate Blood Pressure 165/83 (mmHg) O2 Sat by Pulse 99 99 Oximetry 11/20/16 11/20/16 11/20/16 16:05 16:15 16:29 Temperature Pulse Rate 91 Respiratory 20 20 Rate Blood Pressure (mmHg) O2 Sat by Pulse 99 99 Oximetry 11/20/16 11/20/16 11/20/16 16:30 16:45 17:00 Temperature Pulse Rate 89 89 88 Respiratory 19 22 22 Rate Blood Pressure (mmHg) O2 Sat by Pulse 99 99 99 Oximetry 11/20/16 11/20/16 11/20/16 17:15 17:21 17:30 Temperature Pulse Rate 88 90 87 Respiratory 22 21 20 Rate Blood Pressure 161/85 (mmHg) O2 Sat by Pulse 99 99 99 Oximetry 11/20/16 11/20/16 11/20/16 17:45 18:00 19:00 Temperature Pulse Rate 92 90 91 Respiratory 23 22 23 Rate Blood Pressure 165/84 163/85 (mmHg) O2 Sat by Pulse 99 99 99 Oximetry 11/20/16 11/20/16 11/20/16 19:31 19:33 20:00 Temperature 99.1 F Pulse Rate 93 93 Respiratory 24 23 Rate Blood Pressure 171/100 (mmHg) O2 Sat by Pulse 98 98 Oximetry 11/20/16 11/20/16 11/20/16 21:00 22:00 23:00 Temperature 100.1 F 100.0 F Pulse Rate 91 85 90 Respiratory 26 23 21 Rate Blood Pressure 165/87 162/77 164/80 (mmHg) O2 Sat by Pulse 98 97 99 Oximetry 11/20/16 11/20/16 11/21/16 23:11 23:15 00:00 Temperature 100.0 F 99.9 F Pulse Rate 93 96 Respiratory 22 24 21 Rate Blood Pressure (mmHg) O2 Sat by Pulse 99 99 Oximetry 11/21/16 11/21/16 11/21/16 00:01 01:00 02:00 Temperature 99.8 F 99.5 F Pulse Rate 89 78 Respiratory 19 15 Rate Blood Pressure 159/76 156/74 154/76 (mmHg) O2 Sat by Pulse 98 98 Oximetry 11/21/16 11/21/16 11/21/16 03:00 04:00 05:00 Temperature 99.2 F 88.9 F Pulse Rate 91 82 Respiratory 16 17 17 Rate Blood Pressure 152/75 149/78 159/69 (mmHg) O2 Sat by Pulse 98 95 Oximetry 11/21/16 06:00 Temperature 100.4 F Pulse Rate 91 Respiratory 20 Rate Blood Pressure 167/73 (mmHg) O2 Sat by Pulse 95 Oximetry Oxygen Devices in Use Now: High Flow Nasal Cannula - vapotherm Appearance: Alert, head partly up in ICU bed. Flat affect. Looks comfortable, although in semi- position. Eyes: No Scleral Icterus Ears/Nose/Mouth/Throat: Clear Oropharnyx, Mucous Membranes Moist Neck: NL Appearance and Movements; NL JVP, No Thyroid Enlargement, Masses Respiratory: Symmetrical Chest Expansion and Respiratory Effort, Clear to Auscultation, Clear to Percussion Extremities: No Edema, No Clubbing, Cyanosis, - Skin: No Rash or Ulcers, No Nodules or Sclerosis, - Neurological: - - hips and knees flexed, marked increased tone and/or contractures. Same for both hands. No tremor. Doesn't vocalize at all. Result Diagrams: 11/19/16 05:00 11/21/16 05:05 Additional Lab and Data: Lab Results 11/16/16 11/16/16 11/16/16 Range/Units 20:20 20:20 20:20 WBC 19.4 H (3.5-10.8) 10^3/ul RBC 4.98 (4.0-5.4) 10^6/ul Hgb 14.1 (12.0-16.0) g/dl Hct 43 (35-47) % MCV 86 (80-97) fL MCH 28 (27-31) pg MCHC 33 (31-36) g/dl RDW 14 (10.5-15) % Plt Count 244 (150-450) 10^3/ul MPV 9 (7.4-10.4) um3 Neut % (Auto) 83.1 H (38-83) % Lymph % (Auto) 10.6 L (25-47) % [place] % (Auto) 5.7 (1-9) % Eos % (Auto) 0 (0-6) % Baso % (Auto) 0.6 (0-2) % Absolute Neuts (auto) 16.1 H (1.5-7.7) 10^3/ul Absolute Lymphs (auto) 2.1 (1.0-4.8) 10^3/ul Absolute Monos (auto) 1.1 H (0-0.8) 10^3/ul Absolute Eos (auto) 0 (0-0.6) 10^3/ul Absolute Basos (auto) 0.1 (0-0.2) 10^3/ul Absolute Nucleated RBC 0 10^3/ul Nucleated RBC % 0 D-Dimer, Quantitative < 200 (Less Than 230) ng/mL Lactic Acid 1.9 (0.5-2.0) mmol/L Microbiology and Other Data: Microbiology 11/17/16 01:30 Legionella Urinary Antigen - Final Urine Negative Legionella Streptococcus pneumoniae Ag Screen - Final Negative S. pneumo Antigen 11/17/16 01:30 Nasal Screen MRSA (PCR)(SNEHAL) - Final Nasal Mrsa Negative Assess/Plan/Problems-Billing Assessment: 60 F progressive MS, h/o PE p/w cough, fever, hypoxia suspected in setting of PNA - Patient Problems (1) Acute respiratory failure with hypoxia Current Visit: Yes Status: Acute Code(s): J96.01 - ACUTE RESPIRATORY FAILURE WITH HYPOXIA SNOMED Code(s): 53873432 Comment: suspect aspiration PNA in setting of advanced MS and after witnessed hospital event flagyl added 11/19, Vanco added 11/20 completed 10/08 azithromycin 11/20 Vapotherm down to 20 L as of 11/21. At this time her "partner" is the only known surrogate. He has been hesitant to engage in the hospital but has indicated she would "want to live in order to at home" (2) Hx of pulmonary embolus Current Visit: Yes Status: Acute Code(s): Z86.711 - PERSONAL HISTORY OF PULMONARY EMBOLISM SNOMED Code(s): 361999271 Comment: xarelto (3) Multiple sclerosis Current Visit: Yes Status: Acute Code(s): G35 - MULTIPLE SCLEROSIS SNOMED Code(s): 44822370 Comment: tizanidine and baclofen morphine (4) Swallowing dysfunction Current Visit: Yes Status: Acute Comment: SP swallow eval pending. Continue nectar thick liquids, pureed solids.
[2016-11-21] MEDS: D5W 1/2 NS KCl 20 Meq 1000 ML* 1,000 ML IV SCH (07:35)
[2016-11-21] MEDS ORDERED: D5W 1/2 NS KCl 20 Meq 1000 ML* 1,000 ML IV SCH (08:00)
[2016-11-21] MEDS: Acetaminophen SUPP* 650 MG SUPP PR PRN ×2 (08:57→20:39)
[2016-11-21] MEDS: Rivaroxaban TAB(*) 20 MG TAB PO SCH (09:25)
[2016-11-21] MEDS: Vancomycin(*) 1,250 MG in NS 0.9% 250 ML* 250 ML IVPB SCH ×2 (12:28→20:39)
[2016-11-21] MEDS: CITALOPRAM PO SCH (21:44)
[2016-11-21] MEDS: cefTRIAXone VIAL(*) 1,000 MG in NS 0.9% 50 ML* 50 ML IVPB SCH (23:32)
[2016-11-22] MEDS: metroNIDAZOLE IV 500 MG/100ML* 500 MG/100 ML BAG IVPB SCH ×3 (01:16→16:33)
[2016-11-22] MEDS: D5W 1/2 NS KCl 20 Meq 1000 ML* 1,000 ML IV SCH ×2 (04:03→21:36)
[2016-11-22 04:27] LABS: Hematocrit 35 % (35-47); Hemoglobin 11.9 g/dl (12.0-16.0); Mean Corpuscular HGB Conc 34 g/dl (31-36); Mean Corpuscular Hemoglobin 28 pg (27-31); Mean Corpuscular Volume 82 fL (80-97); Mean Platelet Volume 8 um3 (7.4-10.4); Red Blood Count 4.24 10^6/ul (4.0-5.4); Red Cell Distribution Width 14 % (10.5-15); White Blood Count 9.6 10^3/ul (3.5-10.8)
[2016-11-22] MEDS: Vancomycin(*) 1,250 MG in NS 0.9% 250 ML* 250 ML IVPB SCH (05:14)
[2016-11-22] MEDS: Albuterol 2.5 MG/3 ML NEB.SOL* (0.083%) INH PRN ×2 (07:49→11:29)
--- NOTE | 2016-11-22 08:39 | PN ---
Subjective Date of Service: 11/22/16 Interval History: Patient not able to make her needs known. Objective Active Medications: Acetaminophen (Tylenol Supp*) 650 mg [place] Q6H PRN PRN Reason: FEVER/PAIN Last Admin: 11/21/16 20:39 Dose: 650 mg Albuterol (Ventolin 2.5 Mg/3 Ml Neb.Kristy*) 2.5 mg INH Q2H PRN PRN Reason: SOB/WHEEZING Last Admin: 11/22/16 07:49 Dose: 2.5 mg Baclofen (Lioresal Tab*) 10 mg PO Q4H PRN PRN Reason: PAIN Last Admin: 11/19/16 09:08 Dose: 10 mg Citalopram Hydrobromide (Citalopram Kristy*) 20 mg PO BEDTIME CHASIDY Last Admin: 11/21/16 21:44 Dose: 10 mg Ceftriaxone Sodium 1,000 mg/ (Sodium Chloride) 50 mls @ 200 mls/hr IVPB Q24H [facility] Stop: 11/23/16 03:00 Last Admin: 11/21/16 23:32 Dose: 200 mls/hr Metronidazole/Sodium Chloride (Flagyl 500 Mg Ivpb*) 500 mg in 100 mls @ 100 mls /hr IVPB Q8H [facility] Stop: 11/23/16 11:00 Last Admin: 11/22/16 08:15 Dose: 100 mls/hr Potassium Chloride/Dextrose (D5w 1/2 Ns Kcl 20 Meq 1000 Ml*) 1,000 mls @ 75 mls /hr IV PER RATE CHASIDY Last Admin: 11/22/16 04:03 Dose: 75 mls/hr Morphine Sulfate (Morphine Inj (Syringe)*) 2 mg IV Q4H PRN PRN Reason: PAIN Last Admin: 11/20/16 23:15 Dose: 2 mg Ondansetron HCl (Zofran Inj*) 4 mg IV Q6H PRN PRN Reason: NAUSEA Pharmacy Consult (Vancomycin Per Pharmacy*) 1 note FOLLOW UP . PRN PRN Reason: PER PROTOCOL Rivaroxaban (Xarelto (*)) 20 mg PO 0900 CHASIDY Last Admin: 11/21/16 09:25 Dose: 20 mg Tizanidine HCl (Zanaflex Tab*) 6 mg PO BID PRN PRN Reason: PAIN Last Admin: 11/19/16 12:11 Dose: 6 mg Vital Signs 11/21/16 11/21/16 11/21/16 09:00 10:00 11:00 Temperature 100.8 F 100.4 F 100.0 F Pulse Rate 94 83 73 Respiratory 21 18 17 Rate Blood Pressure 137/69 112/59 (mmHg) O2 Sat by Pulse 94 97 95 Oximetry 11/21/16 11/21/16 11/21/16 12:00 13:00 14:00 Temperature 99.7 F 94.9 F 99.8 F Pulse Rate 75 83 83 Respiratory 19 21 21 Rate Blood Pressure 126/64 142/74 133/72 (mmHg) O2 Sat by Pulse 92 97 96 Oximetry 11/21/16 11/21/16 11/21/16 15:00 16:00 17:00 Temperature 99.4 F 100.1 F 100.0 F Pulse Rate 80 84 89 Respiratory 23 24 24 Rate Blood Pressure 134/69 144/71 153/70 (mmHg) O2 Sat by Pulse 94 97 92 Oximetry 11/21/16 11/21/16 11/21/16 18:00 18:29 19:00 Temperature 100.4 F 100.6 F Pulse Rate 95 92 Respiratory 28 27 Rate Blood Pressure 149/85 161/67 (mmHg) O2 Sat by Pulse 94 96 Oximetry 11/21/16 11/21/16 11/21/16 20:00 20:56 21:00 Temperature 100.7 F 100.5 F Pulse Rate 103 95 95 Respiratory 31 21 26 Rate Blood Pressure 154/74 (mmHg) O2 Sat by Pulse 96 98 94 Oximetry 11/21/16 11/21/16 11/21/16 21:05 22:00 23:00 Temperature 100.4 F 100.1 F 100.2 F Pulse Rate 96 93 91 Respiratory 27 23 30 Rate Blood Pressure 161/71 162/82 158/81 (mmHg) O2 Sat by Pulse 90 95 95 Oximetry 11/22/16 11/22/16 11/22/16 00:00 00:01 01:00 Temperature 100.1 F 100.1 F 100.1 F Pulse Rate 85 90 86 Respiratory 25 24 24 Rate Blood Pressure 142/74 152/70 (mmHg) O2 Sat by Pulse 96 95 97 Oximetry 11/22/16 11/22/16 11/22/16 02:00 03:00 04:00 Temperature 99.8 F 99.9 F 100.0 F Pulse Rate 85 83 87 Respiratory 26 27 27 Rate Blood Pressure 152/74 153/74 151/77 (mmHg) O2 Sat by Pulse 94 96 97 Oximetry 11/22/16 11/22/16 11/22/16 05:00 06:00 07:00 Temperature 99.7 F 100.3 F 100.5 F Pulse Rate 84 103 83 Respiratory 27 32 25 Rate Blood Pressure 154/70 164/79 148/76 (mmHg) O2 Sat by Pulse 95 92 96 Oximetry 11/22/16 11/22/16 11/22/16 07:49 07:50 08:00 Temperature 100.7 F Pulse Rate 91 91 96 Respiratory 32 32 26 Rate Blood Pressure 163/79 (mmHg) O2 Sat by Pulse 97 97 97 Oximetry Oxygen Devices in Use Now: High Flow Nasal Cannula - vapotherm Appearance: Eyes open, very brief eye contact. Head partly up in ICU bed. Looks comfortable. Eyes: No Scleral Icterus Neck: NL Appearance and Movements; NL JVP, No Thyroid Enlargement, Masses Respiratory: Symmetrical Chest Expansion and Respiratory Effort, Clear to Percussion, - - mod rhonchi all lung wolf Cardiovascular: NL Sounds; No Murmurs; No JVD, RRR, No Edema, - Skin: No Rash or Ulcers, No Nodules or Sclerosis, - Neurological: - - Poor eye contact. Nods "yes" sometimes to questions, ignores most questions. Nearly motionless. Semi- position, contractures most large joints. Result Diagrams: 11/22/16 03:40 11/21/16 05:05 Additional Lab and Data: Lab Results 11/16/16 11/16/16 11/16/16 Range/Units 20:20 20:20 20:20 WBC 19.4 H (3.5-10.8) 10^3/ul RBC 4.98 (4.0-5.4) 10^6/ul Hgb 14.1 (12.0-16.0) g/dl Hct 43 (35-47) % MCV 86 (80-97) fL MCH 28 (27-31) pg MCHC 33 (31-36) g/dl RDW 14 (10.5-15) % Plt Count 244 (150-450) 10^3/ul MPV 9 (7.4-10.4) um3 Neut % (Auto) 83.1 H (38-83) % Lymph % (Auto) 10.6 L (25-47) % [place] % (Auto) 5.7 (1-9) % Eos % (Auto) 0 (0-6) % Baso % (Auto) 0.6 (0-2) % Absolute Neuts (auto) 16.1 H (1.5-7.7) 10^3/ul Absolute Lymphs (auto) 2.1 (1.0-4.8) 10^3/ul Absolute Monos (auto) 1.1 H (0-0.8) 10^3/ul Absolute Eos (auto) 0 (0-0.6) 10^3/ul Absolute Basos (auto) 0.1 (0-0.2) 10^3/ul Absolute Nucleated RBC 0 10^3/ul Nucleated RBC % 0 D-Dimer, Quantitative < 200 (Less Than 230) ng/mL Lactic Acid 1.9 (0.5-2.0) mmol/L Microbiology and Other Data: Microbiology 11/17/16 01:30 Legionella Urinary Antigen - Final Urine Negative Legionella Streptococcus pneumoniae Ag Screen - Final Negative S. pneumo Antigen 11/17/16 01:30 Nasal Screen MRSA (PCR)(SNEHAL) - Final Nasal Mrsa Negative Assess/Plan/Problems-Billing Assessment: 60 F progressive MS, h/o PE p/w cough, fever, hypoxia suspected in setting of PNA - Patient Problems (1) Acute respiratory failure with hypoxia Current Visit: Yes Status: Acute Code(s): J96.01 - ACUTE RESPIRATORY FAILURE WITH HYPOXIA SNOMED Code(s): 68234175 Comment: suspect aspiration PNA in setting of advanced MS and after witnessed hospital event Stop antibiotics 11/22 PM as has had 7 days ceftriaxone, neg cultures. Cause of fever uncertain. Repeat CXR 11/22. completed 10/08 azithromycin 11/20 Vapotherm down to 20 L as of 11/21. At this time her "partner" is the only known surrogate. He has been hesitant to engage in the hospital but has indicated she would "want to live in order to at home" (2) Hx of pulmonary embolus Current Visit: Yes Status: Acute Code(s): Z86.711 - PERSONAL HISTORY OF PULMONARY EMBOLISM SNOMED Code(s): 127162506 Comment: charles (3) Multiple sclerosis Current Visit: Yes Status: Acute Code(s): G35 - MULTIPLE SCLEROSIS SNOMED Code(s): 78692643 Comment: tizanidine and baclofen morphine (4) Swallowing dysfunction Current Visit: Yes Status: Acute Comment: SP swallow eval pending. Continue nectar thick liquids, pureed solids.
[2016-11-22] MEDS: Rivaroxaban TAB(*) 20 MG TAB PO SCH (09:06)
[2016-11-22] MEDS ORDERED: Vancomycin Trough Check NOTE FOLLOW UP ONE (12:30)
[2016-11-22] MEDS: Morphine INJ* 2 MG/ML 1 ML SYRINGE IV PRN (16:26)
[2016-11-22] MEDS: Acetaminophen SUPP* 650 MG SUPP PR PRN (18:18)
[2016-11-22] MEDS: CITALOPRAM PO SCH (21:35)
[2016-11-22] MEDS: cefTRIAXone VIAL(*) 1,000 MG in NS 0.9% 50 ML* 50 ML IVPB SCH (23:36)
[2016-11-23] MEDS: metroNIDAZOLE IV 500 MG/100ML* 500 MG/100 ML BAG IVPB SCH ×2 (01:27→12:33)
[2016-11-23] MEDS: Albuterol 2.5 MG/3 ML NEB.SOL* (0.083%) INH PRN (03:50)
[2016-11-23 06:35] LABS: Hematocrit 34 % (35-47); Hemoglobin 11.6 g/dl (12.0-16.0); Mean Corpuscular HGB Conc 34 g/dl (31-36); Mean Corpuscular Hemoglobin 28 pg (27-31); Mean Corpuscular Volume 82 fL (80-97); Mean Platelet Volume 8 um3 (7.4-10.4); Red Blood Count 4.15 10^6/ul (4.0-5.4); Red Cell Distribution Width 14 % (10.5-15); White Blood Count 10.5 10^3/ul (3.5-10.8)
[2016-11-23 06:47] LABS: Calcium 8.1 mg/dL (8.6-10.3); EGFR African American 292.8 (>60); EGFR Non-African American 227.7 (>60)
[2016-11-23 06:49] LABS: Potassium 2.6 mmol/L (3.5-5.0)
[2016-11-23] MEDS ORDERED: D5W 1/2 NS KCl 20 Meq 1000 ML* 1,000 ML IV SCH (07:26)
--- NOTE | 2016-11-23 07:39 | PN ---
Subjective Date of Service: 11/23/16 Interval History: Patient not able to make her needs known. Objective Active Medications: Acetaminophen (Tylenol Supp*) 650 mg DC Q6H PRN PRN Reason: FEVER/PAIN Last Admin: 11/22/16 18:18 Dose: 650 mg Albuterol (Ventolin 2.5 Mg/3 Ml Neb.Kristy*) 2.5 mg INH Q2H PRN PRN Reason: SOB/WHEEZING Last Admin: 11/23/16 03:50 Dose: 2.5 mg Baclofen (Lioresal Tab*) 10 mg PO Q4H PRN PRN Reason: PAIN Last Admin: 11/19/16 09:08 Dose: 10 mg Citalopram Hydrobromide (Citalopram Kristy*) 20 mg PO BEDTIME CHASIDY Last Admin: 11/22/16 21:35 Dose: 20 mg Metronidazole/Sodium Chloride (Flagyl 500 Mg Ivpb*) 500 mg in 100 mls @ 100 mls /hr IVPB Q8H CHASIDY Stop: 11/23/16 11:00 Last Admin: 11/23/16 01:27 Dose: 100 mls/hr Potassium Chloride (Potassium Chloride 20 Meq/100 Ml Ivpremix*) 20 meq in 100 mls @ 50 mls/hr IV Q2H CHASIDY Stop: 11/23/16 10:59 Potassium Chloride/Dextrose (D5w 1/2 Ns Kcl 20 Meq 1000 Ml*) 1,000 mls @ 100 mls/hr IV PER RATE [facility] Morphine Sulfate (Morphine Inj (Syringe)*) 2 mg IV Q4H PRN PRN Reason: PAIN Last Admin: 11/22/16 16:26 Dose: 2 mg Ondansetron HCl (Zofran Inj*) 4 mg IV Q6H PRN PRN Reason: NAUSEA Rivaroxaban (Xarelto (*)) 20 mg PO 0900 CHASIDY Last Admin: 11/22/16 09:06 Dose: 20 mg Tizanidine HCl (Zanaflex Tab*) 6 mg PO BID PRN PRN Reason: PAIN Last Admin: 11/19/16 12:11 Dose: 6 mg Vital Signs 11/22/16 11/22/16 11/22/16 07:49 07:50 08:00 Temperature 100.7 F Pulse Rate 91 91 96 Respiratory 32 32 26 Rate Blood Pressure 163/79 (mmHg) O2 Sat by Pulse 97 97 97 Oximetry 11/22/16 11/22/16 11/22/16 08:20 09:00 10:00 Temperature 100.9 F 100.4 F Pulse Rate 91 92 Respiratory 30 28 24 Rate Blood Pressure 150/69 (mmHg) O2 Sat by Pulse 98 96 Oximetry 11/22/16 11/22/16 11/22/16 11:00 11:29 12:00 Temperature 100.2 F Pulse Rate 90 91 84 Respiratory 24 24 Rate Blood Pressure 145/66 (mmHg) O2 Sat by Pulse 95 98 Oximetry 11/22/16 11/22/16 11/22/16 12:31 13:00 14:00 Temperature Pulse Rate 85 91 84 Respiratory 14 23 2 Rate Blood Pressure 145/70 149/70 146/67 (mmHg) O2 Sat by Pulse 96 92 96 Oximetry 11/22/16 11/22/16 11/22/16 15:00 15:13 16:00 Temperature 100.8 F Pulse Rate 93 95 Respiratory 23 20 24 Rate Blood Pressure 151/75 160/83 (mmHg) O2 Sat by Pulse 94 98 Oximetry 11/22/16 11/22/16 11/22/16 16:01 16:26 17:00 Temperature 100.8 F Pulse Rate 74 Respiratory 25 24 16 Rate Blood Pressure 141/64 (mmHg) O2 Sat by Pulse 97 Oximetry 11/22/16 11/22/16 11/22/16 18:00 19:00 20:00 Temperature 101.1 F 100.9 F 100.6 F Pulse Rate 71 89 74 Respiratory 16 19 19 Rate Blood Pressure 145/72 145/80 130/62 (mmHg) O2 Sat by Pulse 100 96 96 Oximetry 11/22/16 11/22/16 11/22/16 21:00 22:00 22:21 Temperature 100.1 F 100.1 F 100.1 F Pulse Rate 90 86 86 Respiratory 19 22 21 Rate Blood Pressure 134/70 135/76 (mmHg) O2 Sat by Pulse 90 94 94 Oximetry 11/22/16 11/22/16 11/22/16 22:27 22:33 23:00 Temperature 100.2 F Pulse Rate 72 Respiratory 18 Rate Blood Pressure 120/66 (mmHg) O2 Sat by Pulse 94 94 99 Oximetry 11/23/16 11/23/16 11/23/16 00:00 00:01 00:23 Temperature 99.8 F 99.8 F 99.9 F Pulse Rate 76 77 69 Respiratory 19 19 17 Rate Blood Pressure 132/72 (mmHg) O2 Sat by Pulse 97 98 99 Oximetry 11/23/16 11/23/16 11/23/16 01:00 04:00 04:05 Temperature 99.9 F 100.1 F Pulse Rate 68 76 Respiratory 17 19 Rate Blood Pressure 138/76 139/75 (mmHg) O2 Sat by Pulse 99 96 Oximetry 11/23/16 11/23/16 05:00 06:00 Temperature 100.0 F 99.8 F Pulse Rate 69 83 Respiratory 17 20 Rate Blood Pressure 117/66 136/71 (mmHg) O2 Sat by Pulse 98 92 Oximetry Oxygen Devices in Use Now: Nasal Cannula - vapotherm Appearance: Alert, head partly up in ICU bed. Neutral affect. Looks comfortable. Eyes: No Scleral Icterus Neck: NL Appearance and Movements; NL JVP, No Thyroid Enlargement, Masses Respiratory: Symmetrical Chest Expansion and Respiratory Effort, Clear to Auscultation, Clear to Percussion Cardiovascular: NL Sounds; No Murmurs; No JVD, RRR, No Edema, - Extremities: No Edema, No Clubbing, Cyanosis, - Skin: No Rash or Ulcers, No Nodules or Sclerosis, - Neurological: NL Sensation - Brief eye contact. Non-verbal. Does not follow commands. No tremor. Semi- position as before. Result Diagrams: 11/23/16 06:22 11/23/16 06:22 Additional Lab and Data: Lab Results 11/16/16 11/16/16 11/16/16 Range/Units 20:20 20:20 20:20 WBC 19.4 H (3.5-10.8) 10^3/ul RBC 4.98 (4.0-5.4) 10^6/ul Hgb 14.1 (12.0-16.0) g/dl Hct 43 (35-47) % MCV 86 (80-97) fL MCH 28 (27-31) pg MCHC 33 (31-36) g/dl RDW 14 (10.5-15) % Plt Count 244 (150-450) 10^3/ul MPV 9 (7.4-10.4) um3 Neut % (Auto) 83.1 H (38-83) % Lymph % (Auto) 10.6 L (25-47) % [place] % (Auto) 5.7 (1-9) % Eos % (Auto) 0 (0-6) % Baso % (Auto) 0.6 (0-2) % Absolute Neuts (auto) 16.1 H (1.5-7.7) 10^3/ul Absolute Lymphs (auto) 2.1 (1.0-4.8) 10^3/ul Absolute Monos (auto) 1.1 H (0-0.8) 10^3/ul Absolute Eos (auto) 0 (0-0.6) 10^3/ul Absolute Basos (auto) 0.1 (0-0.2) 10^3/ul Absolute Nucleated RBC 0 10^3/ul Nucleated RBC % 0 D-Dimer, Quantitative < 200 (Less Than 230) ng/mL Lactic Acid 1.9 (0.5-2.0) mmol/L Microbiology and Other Data: Microbiology 11/17/16 01:30 Legionella Urinary Antigen - Final Urine Negative Legionella Streptococcus pneumoniae Ag Screen - Final Negative S. pneumo Antigen 11/17/16 01:30 Nasal Screen MRSA (PCR)(SNEHAL) - Final Nasal Mrsa Negative Assess/Plan/Problems-Billing Assessment: 60 F progressive MS, h/o PE p/w cough, fever, hypoxia suspected in setting of PNA - Patient Problems (1) Acute respiratory failure with hypoxia Current Visit: Yes Status: Acute Code(s): J96.01 - ACUTE RESPIRATORY FAILURE WITH HYPOXIA SNOMED Code(s): 75789825 Comment: suspect aspiration PNA in setting of advanced MS and after witnessed hospital event Stop antibiotics 11/22 PM as has had 7 days ceftriaxone, neg cultures. Cause of fever uncertain. Repeat CXR 11/22. completed 10/08 azithromycin 11/20 Vapotherm down to 20 L as of 11/21. At this time her "partner" is the only known surrogate. He has been hesitant to engage in the hospital but has indicated she would "want to live in order to at home" (2) Hx of pulmonary embolus Current Visit: Yes Status: Acute Code(s): Z86.711 - PERSONAL HISTORY OF PULMONARY EMBOLISM SNOMED Code(s): 008357134 Comment: charles (3) Multiple sclerosis Current Visit: Yes Status: Acute Code(s): G35 - MULTIPLE SCLEROSIS SNOMED Code(s): 57124201 Comment: tizanidine and baclofen morphine (4) Swallowing dysfunction Current Visit: Yes Status: Acute Comment: SP swallow eval pending. Continue nectar thick liquids, pureed solids.
[2016-11-23] MEDS: KCL 20 MEQ/100 ML IVPREMIX* 20 MEQ/100 ML BAG IV SCH ×2 (07:41→09:48)
--- NOTE | 2016-11-23 08:31 | RAD ---
INDICATION: Aspiration pneumonia COMPARISON: Most recent comparison chest x-ray is dated November 20, 2016 TECHNIQUE: Single AP portable view of the chest was obtained. FINDINGS: Image quality is compromised due to the relative inferiority of a portable chest x-ray. The heart and mediastinum exhibit normal size and contour. There is faint linear density at the bilateral lung bases. The right costophrenic angle is slightly blunted, but this may be of secured by rotation of the patient during image acquisition. The upper lungs are well aerated. Visualized bones are normal for the patient's age. IMPRESSION: Linear density at the bilateral lung bases could represent atelectasis or other consolidation. There is potentially a small pleural effusion at the left lung base blunting the costophrenic angle. Overall the degree of aeration is slightly worse when compared to the November 20, 2016 chest x-ray.
[2016-11-23] MEDS: Rivaroxaban TAB(*) 20 MG TAB PO SCH (09:00)
[2016-11-23] MEDS ORDERED: Morphine ORAL CONCENTRATE* 5 MG/0.25 ML ORAL.SYRIN SL PRN (13:51)
[2016-11-23] MEDS ORDERED: Atropine 1% (ORAL/SL)* 15 ML BTL SL PRN (13:52)
[2016-11-23] MEDS ORDERED: LORazepam TAB(*) 1 MG SL PRN (13:52)
--- NOTE | 2016-11-23 14:01 | PN ---
Progress Note - Progress Note Note: O2 sat on RA by me 87%.
--- NOTE | 2016-11-23 14:14 | PN ---
"Progress Note - Progress Note Note: Search Terms: navjot ferguson, 1955 Search Date: 11/23/2016 02:05:49 PM The Drug Utilization Report below displays all of the controlled substance prescriptions, if any, that your patient has filled in the last twelve months. The information displayed on this report is compiled from pharmacy submissions to the Department, and accurately reflects the information as submitted by the pharmacies. This report was requested by: Wilmer Stephen | Reference #: [id number] There are no results for the search terms that you entered."
--- NOTE | 2016-11-23 14:15 | PN ---
Progress Note - Progress Note Note: O2 sat by me on 4 L NC 89%. I have specified 4 L/min as rate to use at home.
[2016-11-23] MEDS ORDERED: Acetaminophen SUPP* 650 MG SUPP PR PRN (16:25)
[2016-11-23] MEDS ORDERED: Acetaminophen SUPP* 650 MG SUPP ONE (16:30)
[2016-11-23] MEDS: Morphine INJ* 2 MG/ML 1 ML SYRINGE IV PRN ×2 (16:33→21:11)
[2016-11-23] MEDS ORDERED: CITALOPRAM PO SCH (21:00)
[2016-11-24 05:49] LABS: BUN/Creatinine Ratio 12.5 (8-20); Calcium 8.3 mg/dL (8.6-10.3); EGFR African American 271.8 (>60); EGFR Non-African American 211.4 (>60); Potassium 3.1 mmol/L (3.5-5.0)
--- NOTE | 2016-11-24 06:17 | DS ---
CC: Dr. John.* DISCHARGE SUMMARY: DATE OF ADMISSION: 11/16/16 DATE OF DISCHARGE: 11/24/16 (This is being dictated in advance.) HISTORY: This 60-year-old woman presented with respiratory distress. She was unable to give a history. At the time she was in the emergency room her partner and primary caregiver was out of town and a friend was watching her called 911 because of her breathing difficulty. Her O2 sat was in the 80s at home, I do not think she had oxygen at home. The rest of the history is stated in the admission note. The patient had hypoxic respiratory failure with suspected left lower lobe pneumonia, possibly aspiration. The patient was admitted to the Intensive Care Unit and given broad spectrum antibiotics. Blood cultures were no growth. Urine culture showed normal rubin. She required noninvasive pulmonary assistance, eventually she was changed to Vapotherm. On the day of discharge, she was able to maintain a sat of 89% on 4 L via nasal cannula. Her overall clinical condition was quite poor and I believe this is likely her new baseline, may not very different from her old baseline. She basically was unable or unwilling to take any significant amount of food or drink. The family was very supportive and I will arrange for hospice which will visit her probably on the day of discharge, 11/24, at home. is very willing and able to care for her at home with hospice guidance. FINAL DIAGNOSES: 1. Acute respiratory failure. 2. History of pulmonary embolus. 3. Multiple sclerosis. 4. Swallowing dysfunction. DISCHARGE MEDICATIONS: 1. Atropine 1% two drops sublingual every 2 hours p.r.n. 2. Lorazepam 1 mg sublingual every 4 hours p.r.n. 3. Morphine oral concentrate 5 mg sublingual every 30 minutes p.r.n. 4. Tizanidine 6 mg b.i.d. p.r.n. 5. Baclofen 40 mg b.i.d. p.r.n. 6. Ketoconazole cream applied topically. [id number]/[facility] #: [id number] MTDD
[2016-11-24 08:05] VITALS: BP 161/86
--- NOTE | 2016-11-24 12:47 | CONS ---
CC: Crystal John MD PALLIATIVE CARE CONSULTATION: DATE OF CONSULT: 11/24/16 PRIMARY CARE PHYSICIAN: Crystal John MD REFERRING PHYSICIAN FOR CONSULTATION: Stephane Stephen MD HOSPITAL COURSE: This is a 60-year-old female with a past medical history of progressive multiple s clerosis and history of pulmonary embolism, on anticoagulation, who presented to the emergency room on the with respiratory distress. It appears, based on her records as her partner is not in th e room and unavailable by phone, that she is mainly nonverbal. She is able to shake her head yes or no, but is unable to articulate. On admission, the patient was in hypoxic respiratory failure susp ected to be secondary to aspiration pneumonia and was admitted to the ICU and placed on Vapotherm an d broad-spectrum antibiotics. The patient was able to be weaned off the Vapotherm to nasal cannula. She had a swallow study done on the and Speech Therapy recommended. Tolerates thin liquids, no straws. According to the records, her partner that she lives with, Rupert Turner, has been with jeri dillard for the past 20 years. She has a sister, Stephanie, who is also a proxy, lives remotely. Per palli [facility] social worker clinical, they state that she wants to pursue hospice referral once she is discharged. Riley garrett are hesitant to pursue any comfort measures while she is inpatient. She is planning to go home today with the partner and continue VNS services for now, but has a [facility] referral set up for an outpatient. Unfortunately, I have been unable to get in touch with either Stephanie, the sister, or the partner, Rupert. On my encounter, the patient is awake. She is able to shake her head no to pain . She denies being hungry. She does feel that she is short of breath. Otherwise review of systems is limited due to the patient's limited verbal interaction. PAST MEDICAL HISTORY: 1. History of pulmonary embolism, on anticoagulation. 2. History of progressive multiple sclerosis. 3. History of dysphagia. INPATIENT MEDICATIONS: 1. Tylenol 650 mg every 6 hours as needed. 2. Albuterol every 2 hours as needed. 3. Atropine 2 drops sublingual q.2 hours as needed. 4. Baclofen 10 mg p.o. q.4 hours as needed for spasticity. 5. Citalopram 10 mg p.o. at bedtime. 6. Lorazepam 1 mg every 4 hours as needed. 7. Morphine 2 mg every 4 hours as needed. 8. Morphine oral concentrate 5 mg sublingual q.30 minutes as needed. 9. Zofran 4 mg IV q.6 hours as needed for nausea. 10. Tizanidine 6 mg p.o. b.i.d. as needed for pain. ALLERGIES: No known drug allergies. FAMILY HISTORY: Unable to obtain. SOCIAL HISTORY: As mentioned, the patient lives at home with her partner, Rupert Turner, who I believ e is her primary healthcare proxy. Secondary proxy is her sister, Stephanie, who does not live local y. No history of tobacco, alcohol or illicit drugs. CODE STATUS: Full code. REVIEW OF SYSTEMS: Limited and as mentioned in the HPI. PHYSICAL EXAM: Vitals: Temp is 99, pulse rate of 91, respiratory rate is 18, oxygen saturation is 96% on 4 L, blood pressure 161/86. General: Frail, cachectic- appearing female in no acute distres s. HEENT: Pupils are dilated and reactive. Head normocephalic. Oropharynx: Mucous membranes dry. Neck: Neck is in a flexed position. Cardiac: Regular rate and rhythm. Soft systolic murmur hea rd throughout. Respiratory: Diminished breath sounds, scattered rhonchi. Abdomen: Soft, nontender , and nondistended. Extremities: Her extremities are contracted and atrophied. Neurologic: Unabl e to obtain as the patient is nonverbal, unable to follow commands. No spontaneous movement noted i n her upper and lower extremities. DIAGNOSTIC STUDIES/LAB DATA: White count 10.5, hemoglobin 11.6, hematocrit 34, and platelets 391. Sodium 138, potassium 3.1, chloride 103, bicarbonate 30, BUN 4, creatinine 0.32. Microbiology Studies: Blood cultures have been negative. Her last chest x-ray done on the wed a linear density at the bilateral lung bases, could represent atelectasis or other consolidation . There is potentially a small pleural effusion at the lung base, blunting the costophrenic angle. Overall, the degree of aeration is slightly worse when compared to the 11/20/16 x-ray. ASSESSMENT: This is a 60-year-old female with past medical history of progressive multiple sclerosi s and pulmonary emboli, on anticoagulation, presented to the emergency room on the with respira tory distress, admitted to the ICU with hypoxic respiratory failure. She has had a prolonged hospit al course and difficulty weaning off her Vapotherm, but is now on 4 L. She did pass her swallow stefani t, but the concern with her progressive multiple sclerosis is that she will not improve and continue to aspirate and thus eligible for hospice with a terminal diagnosis of progressive multiple scleros is, secondary diagnosis of dysphagia and pulmonary embolism. Unfortunately, I was not able to get i n touch with the partner. I will try again later, but the plan is for him to have a hospice referra l when she is home. He is hesitant to do any changes while she is an inpatient for fear that she wi ll while she is here. The patient does not seem to be in any discomfort at this time, although she is complaining of some shortness of breath, so we would recommend sending her home on morphine o ral concentrate as needed for dyspnea symptoms. Thank you for this consultation. We will have outpatient [facility] followup with her when she is di scharged. PATIENT TIME: Greater than 60 minutes spent doing the consultation, more than half the time spent i n direct patient contact. Thank you for this consultation. [id number]/[facility] #: [id number]
== END 2016-11-24 11:45 | disposition home health service (06) | DRG 177 ==
LOC: ED 19:54 → ICU 23:24 → MED 11-19 18:18 → ICU 11-20 11:11 → MED 11-23 10:50
PROVIDERS: ADMIT Hospitalist; ATTEND Internal Medicine
DX: J69.0 Pneumonitis due to inhalation of food and vomit (principal); J96.01 Acute respiratory failure with hypoxia; G35 Multiple sclerosis; E87.1 Hypo-osmolality and hyponatremia; R13.10 Dysphagia, unspecified; E86.0 Dehydration; T17.920A Food in respiratory tract, part unspecified causing asphyxiation, initial encounter; R73.9 Hyperglycemia, unspecified; R41.82 Altered mental status, unspecified; X58.XXXA Exposure to other specified factors, initial encounter; Y92.239 Unspecified place in hospital as the place of occurrence of the external cause; Z86.711 Personal history of pulmonary embolism; Z87.01 Personal history of pneumonia (recurrent)
CPT/HCPCS: 36415; 36600; 70450; 71010; 71020; 80048; 80053; 80202; 81003; 81015; 82565; 82803; 83605; 84484; 84520; 85025; 85379; 87040; 87086; 87641; 87899; 93005; 94640; 94667; 94668; 94760; A9270-GY; J0456; J0696; J2270; J3370; J3480

== ENCOUNTER 2017-09-28 17:35 | Inpatient (IN) | payer MEDICARE, MEDICAID ==
[2017-09-28] MEDS ORDERED: Vancomycin(*) 1,250 MG in NS 0.9% 250 ML* 250 ML IVPB ONE (19:17)
[2017-09-28] MEDS ORDERED: NS 0.9% 1000 ML* 3,000 ML IV ONE (19:17)
[2017-09-28 19:58] LABS: ABS Basophils 0.1 10^3/ul (0-0.2); ABS Eosinophils 0.3 10^3/ul (0-0.6); ABS Lymphocytes 4.1 10^3/ul (1.0-4.8); ABS Monocytes 1.3 10^3/ul (0-0.8); ABS Neutrophils 12.3 10^3/ul (1.5-7.7); ABS Nucleated RBC 0 10^3/ul; Eosinophil % 1.4 % (0-6); Hematocrit 34 % (35-47); Hemoglobin 11.3 g/dl (12.0-16.0); Lymphocyte % 22.6 % (25-47); Mean Corpuscular HGB Conc 33 g/dl (31-36); Mean Corpuscular Hemoglobin 27 pg (27-31); Mean Corpuscular Volume 83 fL (80-97); Mean Platelet Volume 7.9 um3 (7.4-10.4); Nucleated Red Blood Cells % 0.1; Platelet Count 568 10^3/ul (150-450); Red Blood Count 4.12 10^6/ul (4.0-5.4); Red Cell Distribution Width 14 % (10.5-15); White Blood Count 18.1 10^3/ul (3.5-10.8)
[2017-09-28 20:06] LABS: INR 1.33 (0.77-1.02)
[2017-09-28 20:16] LABS: EGFR Non-African American 138.6 (>60)
--- NOTE | 2017-09-28 20:33 | RAD ---
Indication: Right lower leg injury. 3 views of the right lower leg demonstrates fracture of the distal tibia. Underlying pathologic fracture should BE considered as there is heterotopic ossification and lucency. There is medial angulation and displacement approximately 1 shafts width. Volar angulation is noted of the distal fracture fragment. Soft tissue calcifications are also noted. IMPRESSION: Spiral fracture distal tibia and fibula. Volar and medial angulation and medial displacement is noted. Osteopenia is noted and pathologic fracture is not excluded.
--- NOTE | 2017-09-28 20:33 | RAD ---
Indication: Right foot injury. 4 views of the right foot demonstrates diffuse osteopenia. Again noted is fracture of the distal tibia and fibula. There is medial displacement. No obvious fracture is noted in the foot. IMPRESSION: Osteopenia in the tarsal bones without gross fracture. Fracture of the tibia and fibula are again identified.
--- NOTE | 2017-09-28 20:34 | RAD ---
Indication: Right lower extremity injury. 2 views of the right lower extremity demonstrates osteopenia in the distal tibia and fibula with spiral fracture of the distal tibia and fibula. The proximal tibia and fibula show no fracture. IMPRESSION: Fracture distal tibia and fibula with soft tissue calcification and displacement.
--- NOTE | 2017-09-28 20:37 | RAD ---
Indication: Fracture of the right lower leg. Single frontal view of the chest performed at 2007 hours was reviewed. Comparison is made with previous exam dated November 23, 2016. No mediastinal shift is noted. Bibasilar atelectasis is noted. Previous identified infiltrates have improved. No pleural fluid is identified. IMPRESSION: MINIMAL BIBASILAR ATELECTASIS.
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
[2017-09-29] MEDS ORDERED: Albuterol 2.5 MG/3 ML NEB.SOL* (0.083%) INH PRN (00:15)
[2017-09-29] MEDS ORDERED: Ondansetron INJ* 2 MG/ML VIAL IV PRN (00:16)
[2017-09-29] MEDS ORDERED: NS 0.9% 1000 ML* 1,000 ML IV SCH (00:30)
[2017-09-29] MEDS ORDERED: Vancomycin per Pharmacy* NOTE FOLLOW UP SCH (01:00)
[2017-09-29 01:06] LABS: Urine Appearance Turbid; Urine Blood 2+ (Negative); Urine Color Amber; Urine Ketones Negative (Negative); Urine Protein 1+(30 mg/dL) (Negative); Urine Specific Gravity 1.011 (1.010-1.030); Urine Urobilinogen Negative (Negative)
[2017-09-29] MEDS ORDERED: metroNIDAZOLE IV 500 MG/100ML* 500 MG/100 ML BAG IVPB SCH (01:45)
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
[2017-09-29] MEDS: Cefepime(*) 1 GM in NS 0.9% 50 ML* 50 ML IVPB SCH ×2 (03:16→14:59)
[2017-09-29] MEDS: Morphine VIAL* 4 MG/ML VIAL (1 ml vial) IV PRN (03:16)
[2017-09-29] MEDS: Pantoprazole IV* 40 MG IV SCH ×2 (03:16→09:34)
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
[2017-09-29] MEDS: Baclofen TAB* 20 MG PO SCH ×5 (03:38→17:05)
[2017-09-29] MEDS: metroNIDAZOLE IV 500 MG/100ML* 500 MG/100 ML BAG IVPB SCH ×3 (04:03→21:07)
[2017-09-29] MEDS: Vancomycin(*) 1,000 MG in NS 0.9% 250 ML* 250 ML IVPB SCH ×3 (05:42→22:40)
[2017-09-29 06:33] LABS: ABS Basophils 0.1 10^3/ul (0-0.2); ABS Eosinophils 0.4 10^3/ul (0-0.6); ABS Lymphocytes 3.8 10^3/ul (1.0-4.8); ABS Monocytes 1.3 10^3/ul (0-0.8); ABS Neutrophils 9.7 10^3/ul (1.5-7.7); ABS Nucleated RBC 0 10^3/ul; Eosinophil % 2.7 % (0-6); Hematocrit 27 % (35-47); Hemoglobin 8.8 g/dl (12.0-16.0); Lymphocyte % 24.9 % (25-47); Mean Corpuscular HGB Conc 33 g/dl (31-36); Mean Corpuscular Hemoglobin 27 pg (27-31); Mean Corpuscular Volume 83 fL (80-97); Mean Platelet Volume 8.2 um3 (7.4-10.4); Nucleated Red Blood Cells % 0; Platelet Count 444 10^3/ul (150-450); Red Blood Count 3.24 10^6/ul (4.0-5.4); Red Cell Distribution Width 14 % (10.5-15); White Blood Count 15.3 10^3/ul (3.5-10.8)
[2017-09-29 06:52] LABS: EGFR Non-African American 167.6 (>60)
--- NOTE | 2017-09-29 07:43 | RAD ---
INDICATION: Traumatic fracture of the right ankle. COMPARISON: Comparison is made with a prior x-ray study of the same date. TECHNIQUE: 2 views of the right ankle were obtained. FINDINGS: The bones are visualized through a fiberglass splint and are osteopenic limiting the study. There is an oblique impacted fracture of the distal tibia. The distal fragment is angulated anterior and lateral relative the proximal fragment. There is also an oblique fracture of the distal fibula. The distal fragment is nondisplaced well-defined although likely angulated anterior. There has been interval reduction of the previously noted medial angulation of the distal fragments from the prior study. IMPRESSION: OBLIQUE ANGULATED FRACTURES OF THE DISTAL TIBIA AND FIBULA.
--- NOTE | 2017-09-29 07:44 | RAD ---
INDICATION: Traumatic fractures of the right lower leg status post external reduction. COMPARISON: Comparison is made with a prior x-ray study of the right lower leg of the same day. TECHNIQUE: 2 views of the right lower leg were obtained. FINDINGS: The bones are visualized through a fiberglass splint and are grossly osteopenic limiting the study. There is an oblique slightly comminuted fracture of the distal tibia. The distal fragment demonstrates anterior angulation relative the proximal fragment. There is also an oblique fracture of the distal fibula. The distal fragment is not as well-defined although also likely demonstrate anterior angulation. IMPRESSION: OBLIQUE ANGULATED FRACTURES OF THE DISTAL TIBIA AND FIBULA.
[2017-09-29] MEDS ORDERED: tiZANidine TAB* 2 MG PO SCH (09:00)
[2017-09-29] MEDS ORDERED: Baclofen TAB* 10 MG PO SCH ×2 (09:00→18:00)
[2017-09-29] MEDS: Enoxaparin(*) 60 MG/0.6 ML SYR SUBCUT SCH ×2 (09:33→21:08)
[2017-09-29] MEDS: Docusate CAP* 100 MG PO SCH ×3 (09:33→21:04)
[2017-09-29] MEDS: Acetaminophen TAB* 325 MG PO PRN (09:34)
--- NOTE | 2017-09-29 10:09 | PN ---
Progress Note - Progress Note Date of Service: 09/29/17 Note: HCP is Rupert. Stephanie, her sister, is the second HCP, phone [phone].
--- NOTE | 2017-09-29 12:01 | PN ---
Subjective Date of Service: 09/29/17 Interval History: Patient not able to make her needs known. Objective Active Medications: Acetaminophen (Tylenol Tab*) 650 mg PO Q6H PRN PRN Reason: FEVER/PAIN Acetaminophen (Tylenol Supp*) 650 mg [place] Q4H PRN PRN Reason: TEMP EQUAL OR GREATER 101 F Albuterol (Ventolin 2.5 Mg/3 Ml Neb.Kristy*) 2.5 mg INH Q2H PRN PRN Reason: SOB/WHEEZING Baclofen (Lioresal Tab*) 20 mg PO Q8H [facility] Last Admin: 09/29/17 10:10 Dose: Not Given Docusate Sodium (Colace Cap*) 200 mg PO BID [facility] Last Admin: 09/29/17 10:10 Dose: Not Given Enoxaparin Sodium (Lovenox(*)) 50 mg SUBCUT Q12H [facility] Last Admin: 09/29/17 09:33 Dose: 50 mg Cefepime HCl 1 gm/ Sodium (Chloride) 50 mls @ 100 mls/hr IVPB Q12H [facility] Last Admin: 09/29/17 03:16 Dose: 100 mls/hr Sodium Chloride (Ns 0.9% 1000 Ml*) 1,000 mls @ 100 mls/hr IV PER RATE [facility] Metronidazole/Sodium Chloride (Flagyl 500 Mg Ivpb*) 500 mg in 100 mls @ 100 mls /hr IVPB 0400,1200,2000 [facility] Last Admin: 09/29/17 04:03 Dose: 100 mls/hr Vancomycin HCl 1,000 mg/ (Sodium Chloride) 250 mls @ 166.667 mls/hr IVPB Q8H [facility] Last Admin: 09/29/17 05:42 Dose: 166.667 mls/hr Morphine Sulfate (Morphine Vial*) 2 mg IV Q2H PRN PRN Reason: PAIN Last Admin: 09/29/17 03:16 Dose: 2 mg Ondansetron HCl (Zofran Inj*) 4 mg IV Q6H PRN PRN Reason: NAUSEA Pantoprazole Sodium (Protonix Iv*) 40 mg IV DAILY [facility] Last Admin: 09/29/17 09:34 Dose: 40 mg Pharmacy Consult (Vancomycin Per Pharmacy*) 1 note FOLLOW UP .VANC PER PHARMACY [facility] Pharmacy Profile Note (Vancomycin Trough Check) 1 note FOLLOW UP 0600 ONE Stop: 09/30/17 06:01 Vital Signs - 8 hr 09/29/17 09/29/17 04:39 05:16 Respiratory 20 Rate O2 Sat by Pulse 96 Oximetry Oxygen Devices in Use Now: Nasal Cannula Appearance: Alert, on her R side in bed in position. Eyes: No Scleral Icterus Neurological: NL Sensation - She looks at the examiner but shows no sign of comprehension. Non-verbal. No tremor. Result Diagrams: 09/29/17 05:49 09/29/17 05:49 Additional Lab and Data: Lab Results 09/28/17 09/28/17 09/28/17 Range/Units 19:42 19:42 19:42 WBC 18.1 H (3.5-10.8) 10^3/ul RBC 4.12 (4.0-5.4) 10^6/ul Hgb 11.3 L (12.0-16.0) g/dl Hct 34 L (35-47) % MCV 83 (80-97) fL MCH 27 (27-31) pg MCHC 33 (31-36) g/dl RDW 14 (10.5-15) % Plt Count 568 H (150-450) 10^3/ul MPV 7.9 (7.4-10.4) um3 Neut % (Auto) 68.0 (38-83) % Lymph % (Auto) 22.6 L (25-47) % Dare % (Auto) 7.4 H (0-7) % Eos % (Auto) 1.4 (0-6) % Baso % (Auto) 0.6 (0-2) % Absolute Neuts (auto) 12.3 H (1.5-7.7) 10^3/ul Absolute Lymphs (auto) 4.1 (1.0-4.8) 10^3/ul Absolute Monos (auto) 1.3 H (0-0.8) 10^3/ul Absolute Eos (auto) 0.3 (0-0.6) 10^3/ul Absolute Basos (auto) 0.1 (0-0.2) 10^3/ul Absolute Nucleated RBC 0 10^3/ul Nucleated RBC % 0.1 INR (Anticoag Therapy) 1.33 H (0.77-1.02) APTT 28.9 (26.0-36.3) seconds Sodium 137 L (139-145) mmol/L Potassium 4.3 (3.5-5.0) mmol/L Chloride 101 (101-111) mmol/L Carbon Dioxide 26 (22-32) mmol/L Anion Gap 10 (2-11) mmol/L BUN 15 (6-24) mg/dL Creatinine 0.46 L (0.51-0.95) mg/dL Est GFR ( Amer) 178.2 (>60) Est GFR (Non-Af Amer) 138.6 (>60) BUN/Creatinine Ratio 32.6 H (8-20) Glucose 123 H (70-100) mg/dL Lactic Acid (0.5-2.0) mmol/L Calcium 9.3 (8.6-10.3) mg/dL Total Bilirubin 0.40 (0.2-1.0) mg/dL AST 57 H (13-39) U/L ALT 83 H (7-52) U/L Alkaline Phosphatase 97 (34-104) U/L Troponin I 0.01 (<0.04) ng/mL Total Protein 8.7 (6.4-8.9) g/dL Albumin 3.5 (3.2-5.2) g/dL Globulin 5.2 H (2-4) g/dL Albumin/Globulin Ratio 0.7 L (1-3) 04/25/18 Range/Units 19:42 WBC (3.5-10.8) 10^3/ul RBC (4.0-5.4) 10^6/ul Hgb (12.0-16.0) g/dl Hct (35-47) % MCV (80-97) fL MCH (27-31) pg MCHC (31-36) g/dl RDW (10.5-15) % Plt Count (150-450) 10^3/ul MPV (7.4-10.4) um3 Neut % (Auto) (38-83) % Lymph % (Auto) (25-47) % Dare % (Auto) (0-7) % Eos % (Auto) (0-6) % Baso % (Auto) (0-2) % Absolute Neuts (auto) (1.5-7.7) 10^3/ul Absolute Lymphs (auto) (1.0-4.8) 10^3/ul Absolute Monos (auto) (0-0.8) 10^3/ul Absolute Eos (auto) (0-0.6) 10^3/ul Absolute Basos (auto) (0-0.2) 10^3/ul Absolute Nucleated RBC 10^3/ul Nucleated RBC % INR (Anticoag Therapy) (0.77-1.02) APTT (26.0-36.3) seconds Sodium (139-145) mmol/L Potassium (3.5-5.0) mmol/L Chloride (101-111) mmol/L Carbon Dioxide (22-32) mmol/L Anion Gap (2-11) mmol/L BUN (6-24) mg/dL Creatinine (0.51-0.95) mg/dL Est GFR ( Amer) (>60) Est GFR (Non-Af Amer) (>60) BUN/Creatinine Ratio (8-20) Glucose (70-100) mg/dL Lactic Acid 1.7 (0.5-2.0) mmol/L Calcium (8.6-10.3) mg/dL Total Bilirubin (0.2-1.0) mg/dL AST (13-39) U/L ALT (7-52) U/L Alkaline Phosphatase (34-104) U/L Troponin I (<0.04) ng/mL Total Protein (6.4-8.9) g/dL Albumin (3.2-5.2) g/dL Globulin (2-4) g/dL Albumin/Globulin Ratio (1-3) Assess/Plan/Problems-Billing Assessment: - Patient Problems (1) Multiple sclerosis Current Visit: No Status: Acute Code(s): G35 - MULTIPLE SCLEROSIS SNOMED Code(s): 45390687 Comment: End-stage MS. Continue baclofen. (2) Tibia and fibula open fracture, right Current Visit: Yes Status: Acute Code(s): S82.201B - UNSP FX SHAFT OF RIGHT TIBIA, INIT FOR OPN FX TYPE I/2; S82.401B - UNSP FRACTURE OF SHAFT OF R FIBULA, INIT FOR OPN FX TYPE I/2 SNOMED Code(s): 669978447 Comment: Management per Dr. Haynes. Hold rivaroxaban until cleared post-op for AC. (3) Hx of pulmonary embolus Current Visit: No Status: Acute Code(s): Z86.711 - PERSONAL HISTORY OF PULMONARY EMBOLISM SNOMED Code(s): 439329085 Comment: Resume rivaroxaban when appropriate post-op.
[2017-09-29] MEDS: Acetaminophen SUPP* 650 MG SUPP PR PRN (13:04)
[2017-09-30] MEDS: Baclofen TAB* 20 MG PO SCH ×2 (01:15→07:46)
[2017-09-30] MEDS: Cefepime(*) 1 GM in NS 0.9% 50 ML* 50 ML IVPB SCH ×2 (01:18→14:47)
[2017-09-30] MEDS: metroNIDAZOLE IV 500 MG/100ML* 500 MG/100 ML BAG IVPB SCH ×3 (04:25→22:00)
[2017-09-30] MEDS ORDERED: Vancomycin Trough Check NOTE FOLLOW UP ONE (06:00)
[2017-09-30] MEDS: Vancomycin(*) 1,000 MG in NS 0.9% 250 ML* 250 ML IVPB SCH (07:11)
[2017-09-30] MEDS: Docusate CAP* 100 MG PO SCH ×2 (07:47→22:20)
[2017-09-30] MEDS: Morphine VIAL* 4 MG/ML VIAL (1 ml vial) IV PRN ×2 (08:20→19:57)
[2017-09-30] MEDS: Enoxaparin(*) 60 MG/0.6 ML SYR SUBCUT SCH ×2 (08:21→22:18)
--- NOTE | 2017-09-30 12:54 | PN ---
Progress Note - Progress Note Date of Service: 09/30/17 Note: I spoke with Annia's sister Stephanie, telephone #[phone], at length on the phone today. We discussed the difficult situation at length. We discussed the treatment options including trying to salvage the leg with irrigation and debridement, external fixation, and possibly delayed internal fixation. We also discussed a below the knee amputation. We also discussed nonoperative treatment. We discussed the risks/benefits and pros/cons of all of these at length. After this discussion, Stephanie did express that she felt a below the knee amputation was the best option, given the situation. I agree. I think that nonoperative treatment runs the risk of worsening wounds and infections, and even potentially systemic spread. I think that salvage would be a long shot , and would subject her to numerous surgeries. I think that a below the knee amputation gives her the best chance of success. Of course, I explained that she is at high risk for surgery, given her general medical condition. Stephanie was very appreciative of our conversation and thanked me for taking the time to explain all of these options with her. We'll plan on a right below the knee amputation on 10/03/17, likely by Dr. Torres. Shan Blair MD
[2017-09-30] MEDS: D5NS 0.9% 1000 ML BAG* 1,000 ML IV SCH (13:22)
[2017-09-30] MEDS: Vancomycin(*) 750 MG in NS 0.9% 250 ML* 250 ML IVPB SCH ×2 (16:51→23:54)
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
[2017-10-01] MEDS: D5W IVPB SCH ×4 (02:00→13:08)
[2017-10-01] MEDS: CEFEPIME IVPB SCH ×4 (02:00→13:08)
[2017-10-01] MEDS: Baclofen TAB* 20 MG PO SCH ×4 (02:40→16:09)
[2017-10-01] MEDS: metroNIDAZOLE IV 500 MG/100ML* 500 MG/100 ML BAG IVPB SCH ×3 (03:00→20:27)
[2017-10-01 06:35] LABS: ABS Basophils 0.1 10^3/ul (0-0.2); ABS Eosinophils 0.3 10^3/ul (0-0.6); ABS Lymphocytes 2.4 10^3/ul (1.0-4.8); ABS Monocytes 0.7 10^3/ul (0-0.8); ABS Neutrophils 6.4 10^3/ul (1.5-7.7); ABS Nucleated RBC 0 10^3/ul; Eosinophil % 2.9 % (0-6); Hematocrit 29 % (35-47); Hemoglobin 9.9 g/dl (12.0-16.0); Lymphocyte % 24.1 % (25-47); Mean Corpuscular HGB Conc 34 g/dl (31-36); Mean Corpuscular Hemoglobin 27 pg (27-31); Mean Corpuscular Volume 81 fL (80-97); Mean Platelet Volume 7.2 um3 (7.4-10.4); Nucleated Red Blood Cells % 0; Platelet Count 569 10^3/ul (150-450); Red Blood Count 3.62 10^6/ul (4.0-5.4); Red Cell Distribution Width 14 % (10.5-15); White Blood Count 9.9 10^3/ul (3.5-10.8)
[2017-10-01 06:54] LABS: EGFR Non-African American 172.7 (>60)
[2017-10-01] MEDS ORDERED: KCL 20 MEQ/100 ML IVPREMIX* 20 MEQ/100 ML BAG IV SCH ×2 (08:00→11:00)
[2017-10-01] MEDS ORDERED: Potassium Chloride IV* 40 MEQ in NS 0.9% 250 ML* 250 ML IVPB ONE ×2 (08:00→11:30)
--- NOTE | 2017-10-01 08:14 | PN ---
Progress Note - Progress Note Date of Service: 10/01/17 SOAP: Subjective: Pt. is alert, tries to speak to me today for the first time. I cannot understand or establish yes/no answers. Objective: RLE - cellulitis has not progressed proximally. Splint is opened anteriorly. Dorsal wounds are progressing but not open yet. Lateral wound unchanged. Vital Signs: Temp Pulse Resp BP Pulse Ox 99.5 F 99 20 154/65 96 10/01/17 02:48 10/01/17 02:48 10/01/17 04:04 10/01/17 02:48 10/01/17 02:48 Laboratory Results - last 24 hr 10/01/17 10/01/17 06:21 06:21 WBC 9.9 RBC 3.62 L Hgb 9.9 L Hct 29 L MCV 81 MCH 27 MCHC 34 RDW 14 Plt Count 569 H D MPV 7.2 L Neut % (Auto) 64.7 Lymph % (Auto) 24.1 L [place] % (Auto) 7.1 H Eos % (Auto) 2.9 Baso % (Auto) 1.2 Absolute Neuts (auto) 6.4 Absolute Lymphs (auto) 2.4 Absolute Monos (auto) 0.7 Absolute Eos (auto) 0.3 Absolute Basos (auto) 0.1 Absolute Nucleated RBC 0 Nucleated RBC % 0 Sodium 135 L Potassium 2.7 L* Chloride 102 Carbon Dioxide 23 Anion Gap 10 BUN 3 L Creatinine 0.38 L Est GFR ( Amer) 222.2 Est GFR (Non-Af Amer) 172.7 BUN/Creatinine Ratio 7.9 L Glucose 126 H Calcium 8.1 L Assessment: 61 yo F with subacute R tib/fib fracture - now open. Plan: Dr Santoyo discussed options with patient's sister who is now making medical decisions. Ortho best medical rec is a consensus of R KATIE and sister agrees. Plan R BKA on tuesday with Dr. Torres. Splint rewrapped - cont. IV abx. Ortho to follow.
[2017-10-01] MEDS: Enoxaparin(*) 60 MG/0.6 ML SYR SUBCUT SCH ×2 (08:34→20:48)
[2017-10-01] MEDS: Vancomycin(*) 750 MG in NS 0.9% 250 ML* 250 ML IVPB SCH ×2 (08:34→16:09)
[2017-10-01] MEDS: Docusate CAP* 100 MG PO SCH (08:55)
[2017-10-01] MEDS: D5NS 0.9% 1000 ML BAG* 1,000 ML IV SCH (11:17)
[2017-10-01] MEDS ORDERED: Docusate LIQ* 100 MG/10 ML UDC PO PRN (14:16)
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
[2017-10-01] MEDS: Acetaminophen TAB* 325 MG PO PRN (20:52)
[2017-10-02] MEDS: Vancomycin(*) 750 MG in NS 0.9% 250 ML* 250 ML IVPB SCH ×4 (00:04→23:24)
[2017-10-02] MEDS: D5NS 0.9% 1000 ML BAG* 1,000 ML IV SCH (00:04)
[2017-10-02] MEDS: CEFEPIME IVPB SCH ×4 (03:00→15:42)
[2017-10-02] MEDS: D5W IVPB SCH ×4 (03:00→15:42)
[2017-10-02] MEDS: Baclofen TAB* 20 MG PO SCH ×4 (03:02→17:46)
[2017-10-02] MEDS: metroNIDAZOLE IV 500 MG/100ML* 500 MG/100 ML BAG IVPB SCH ×3 (04:42→19:30)
[2017-10-02] MEDS ORDERED: Vancomycin Trough Check NOTE FOLLOW UP ONE (05:30)
[2017-10-02 07:25] LABS: EGFR Non-African American 167.6 (>60)
[2017-10-02] MEDS ORDERED: Potassium Phosphate IV* 15 MMOLE in NS 0.9% 250 ML* 250 ML IVPB ONE (08:20)
[2017-10-02] MEDS ORDERED: Magnesium Sulf 4 GM/100 ML IV* 4,000 MG/100 ML BAG IVPB ONE (08:20)
[2017-10-02] MEDS: Enoxaparin(*) 60 MG/0.6 ML SYR SUBCUT SCH ×2 (09:02→20:44)
[2017-10-02] MEDS: Potassium Chloride LIQUID* 20 MEQ PACKET PO SCH ×2 (09:07→11:14)
[2017-10-02] MEDS ORDERED: Artificial Tears* 15 ML BTL BOTH EYES PRN (17:33)
[2017-10-02] MEDS: Acetaminophen TAB* 325 MG PO PRN (17:38)
--- NOTE | 2017-10-02 17:39 | PN ---
Subjective Date of Service: 10/02/17 Interval History: . still no communication, though she tracks me when I speak with her. Sister arrived from [facility]; she is HCP... I told Ms. ferguson (pt) that she would be having an amputation of her leg tomorrow and there was no perceivable reaction. Sister will consent for patient. nursing care ongoing and well-defined. Potassium and magnesium electrolyte repletion ordered with labs to be rechecked in AM. . Family History: Unchanged from Admission Social History: Unchanged from Admission Past Medical History: Unchanged from Admission Objective Active Medications: . Acetaminophen (Tylenol Tab*) 650 mg PO Q6H PRN PRN Reason: FEVER/PAIN Last Admin: 10/01/17 20:52 Dose: 650 mg Acetaminophen (Tylenol Supp*) 650 mg MA Q4H PRN PRN Reason: TEMP EQUAL OR GREATER 101 F Last Admin: 09/29/17 13:04 Dose: 650 mg Albuterol (Ventolin 2.5 Mg/3 Ml Neb.Kristy*) 2.5 mg INH Q2H PRN PRN Reason: SOB/WHEEZING Baclofen (Lioresal Tab*) 20 mg PO Q8H [facility] Last Admin: 10/02/17 09:07 Dose: 20 mg Docusate Sodium (Colace Liq*) 200 mg PO BID PRN PRN Reason: CONSTIPATION Enoxaparin Sodium (Lovenox(*)) 50 mg SUBCUT Q12H [facility] Last Admin: 10/02/17 09:02 Dose: 50 mg Metronidazole/Sodium Chloride (Flagyl 500 Mg Ivpb*) 500 mg in 100 mls @ 100 mls /hr IVPB 0400,1200,2000 [facility] Last Admin: 10/02/17 14:22 Dose: 100 mls/hr Vancomycin HCl 750 mg/ Sodium (Chloride) 250 mls @ 166.667 mls/hr IVPB Q8H [facility] Last Admin: 10/02/17 16:19 Dose: 166.667 mls/hr Cefepime HCl 1 gm/ Dextrose 50 mls @ 100 mls/hr IVPB Q12H [facility] Last Admin: 10/02/17 15:42 Dose: 100 mls/hr Dextrose/Sodium Chloride (D5ns 0.9% 1000 Ml Bag*) 1,000 mls @ 75 mls/hr IV PER RATE [facility] Last Admin: 10/02/17 00:04 Dose: 75 mls/hr Potassium Chloride (Potassium Chloride 20 Meq/100 Ml Ivpremix*) 20 meq in 100 mls @ 50 mls/hr IV Q2H [facility] Stop: 10/02/17 21:59 Morphine Sulfate (Morphine Vial*) 2 mg IV Q2H PRN PRN Reason: PAIN Last Admin: 09/30/17 19:57 Dose: 2 mg Ondansetron HCl (Zofran Inj*) 4 mg IV Q6H PRN PRN Reason: NAUSEA Pharmacy Consult (Vancomycin Per Pharmacy*) 1 note FOLLOW UP .VANC PER PHARMACY [facility] Polyvinyl Alcohol (Polyvinyl Alcohol 1.4% Opth*) 1 drop BOTH EYES Q2H PRN PRN Reason: DRY EYE Potassium Chloride (Klor-Con Liquid*) 20 meq PO DAILY [facility] Last Admin: 10/02/17 11:14 Dose: Not Given . Vital Signs - 8 hr 10/02/17 10/02/17 10:00 11:47 Temperature 99.3 F Pulse Rate 87 Respiratory 16 16 Rate Blood Pressure 147/72 (mmHg) O2 Sat by Pulse 94 Oximetry Oxygen Devices in Use Now: None Appearance: non-verbal; no volitional movement. Eyes: - - dry left eye (gtts ordered) Ears/Nose/Mouth/Throat: Clear Oropharnyx Respiratory: Symmetrical Chest Expansion and Respiratory Effort Cardiovascular: RRR Lymphatic: No Cervical Adenopathy Extremities: - - broken tib/fb noted along with wounds (dressed) - no change from previous Neurological: - - eye movement and tracking but no peripheral movement/ sensation noted. Lines/Tubes/Other Access: Clean, Dry and Intact Peripheral IV Nutrition: - - not taking oral food or liquid at this point Result Diagrams: 10/01/17 06:21 10/02/17 06:58 Additional Lab and Data: . Microbiology and Other Data: Microbiology 09/29/17 00:40 Urine Culture - Final Urine Assess/Plan/Problems-Billing . Assessment: 61 yo female with severe MS, now non-verbal with inexplicable injuries including old fractures and open wounds -- subject of medical neglect. . - Patient Problems (1) Wound, open, lower limb with complication Current Visit: Yes Status: Acute Priority: High Code(s): S81.809A - UNSPECIFIED OPEN WOUND, UNSPECIFIED LOWER LEG, INIT ENCNTR Comment: vancomycin, cefepine, flagyl unabale to get bone scan/ MRI due to contractures, movement leg unsalvageable; plan for amputation early this week with orthopedic surgery (2) Tibia and fibula open fracture, right Current Visit: Yes Status: Acute Priority: High Code(s): S82.201B - UNSP FX SHAFT OF RIGHT TIBIA, INIT FOR OPN FX TYPE I/2; S82.401B - UNSP FRACTURE OF SHAFT OF R FIBULA, INIT FOR OPN FX TYPE I/2 Comment: Management per Dr. Haynes. Hold rivaroxaban until cleared post-op for AC. (3) Hypokalemia Current Visit: Yes Status: Acute Priority: High Code(s): E87.6 - HYPOKALEMIA Comment: - replete and recheck - replete mg and phas concurrently (4) Multiple sclerosis Current Visit: Yes Status: Acute Priority: High Code(s): G35 - MULTIPLE SCLEROSIS Comment: End-stage MS. Continue baclofen. (5) Hx of pulmonary embolus Current Visit: Yes Status: Acute Code(s): Z86.711 - PERSONAL HISTORY OF PULMONARY EMBOLISM SNOMED Code(s): 615048870 Comment: Resume rivaroxaban when appropriate post-op. (6) Swallowing dysfunction Current Visit: Yes Status: Acute Priority: High Comment: SP swallow eval pending. Continue nectar thick liquids, pureed solids. (7) Hypophosphatasia Current Visit: Yes Status: Acute Priority: High Code(s): E83.39 - OTHER DISORDERS OF PHOSPHORUS METABOLISM Comment: - noted. replete and recheck. (8) Hypomagnesemia Current Visit: Yes Status: Acute Priority: High Code(s): E83.42 - HYPOMAGNESEMIA Comment: - noted. replete and recheck.
[2017-10-02] MEDS ORDERED: KCL 20 MEQ/100 ML IVPREMIX* 20 MEQ/100 ML BAG IV SCH (18:00)
[2017-10-02] MEDS ORDERED: Potassium Chloride IV* 40 MEQ in NS 0.9% 250 ML* 250 ML IVPB ONE (18:00)
--- NOTE | 2017-10-02 22:58 | PN ---
Progress Note - Progress Note Date of Service: 10/02/17 SOAP: Subjective: Pt lying in bed. Nonverbal. Objective: Vital Signs: Temp Pulse Resp BP Pulse Ox 99.9 F 105 24 158/82 92 10/02/17 18:58 10/02/17 18:58 10/02/17 20:57 10/02/17 18:58 10/02/17 20:57 Laboratory Last Values WBC 9.9 10^3/ul (3.5-10.8) 10/01/17 06:21 RBC 3.62 10^6/ul (4.0-5.4) L 10/01/17 06:21 Hgb 9.9 g/dl (12.0-16.0) L 10/01/17 06:21 Hct 29 % (35-47) L 10/01/17 06:21 MCV 81 fL (80-97) 10/01/17 06:21 MCH 27 pg (27-31) 10/01/17 06:21 MCHC 34 g/dl (31-36) 10/01/17 06:21 RDW 14 % (10.5-15) 10/01/17 06:21 Plt Count 569 10^3/ul (150-450) H D 10/01/17 06:21 MPV 7.2 um3 (7.4-10.4) L 10/01/17 06:21 Neut % (Auto) 64.7 % (38-83) 10/01/17 06:21 Lymph % (Auto) 24.1 % (25-47) L 10/01/17 06:21 [place] % (Auto) 7.1 % (0-7) H 10/01/17 06:21 Eos % (Auto) 2.9 % (0-6) 10/01/17 06:21 Baso % (Auto) 1.2 % (0-2) 10/01/17 06:21 Absolute Neuts (auto) 6.4 10^3/ul (1.5-7.7) 10/01/17 06:21 Absolute Lymphs (auto) 2.4 10^3/ul (1.0-4.8) 10/01/17 06:21 Absolute Monos (auto) 0.7 10^3/ul (0-0.8) 10/01/17 06:21 Absolute Eos (auto) 0.3 10^3/ul (0-0.6) 10/01/17 06:21 Absolute Basos (auto) 0.1 10^3/ul (0-0.2) 10/01/17 06:21 Absolute Nucleated RBC 0 10^3/ul 10/01/17 06:21 Nucleated RBC % 0 10/01/17 06:21 INR (Anticoag Therapy) 1.33 (0.77-1.02) H 09/28/17 19:42 APTT 28.9 seconds (26.0-36.3) 09/28/17 19:42 Sodium 139 mmol/L (139-145) 10/02/17 06:58 Potassium 3.0 mmol/L (3.5-5.0) L 10/02/17 06:58 Chloride 107 mmol/L (101-111) 10/02/17 06:58 Carbon Dioxide 24 mmol/L (22-32) 10/02/17 06:58 Anion Gap 8 mmol/L (2-11) 10/02/17 06:58 BUN 2 mg/dL (6-24) L 10/02/17 06:58 Creatinine 0.39 mg/dL (0.51-0.95) L 10/02/17 06:58 Est GFR ( Amer) 215.6 (>60) 10/02/17 06:58 Est GFR (Non-Af Amer) 167.6 (>60) 10/02/17 06:58 BUN/Creatinine Ratio 5.1 (8-20) L 10/02/17 06:58 Glucose 140 mg/dL (70-100) H 10/02/17 06:58 Lactic Acid 1.3 mmol/L (0.5-2.0) 09/28/17 22:46 Calcium 8.1 mg/dL (8.6-10.3) L 10/02/17 06:58 Phosphorus 2.3 mg/dL (2.5-5.0) L 10/02/17 06:58 Magnesium 1.6 mg/dL (1.9-2.7) L 10/02/17 06:58 Total Bilirubin 0.40 mg/dL (0.2-1.0) 09/28/17 19:42 AST 57 U/L (13-39) H 09/28/17 19:42 ALT 83 U/L (7-52) H 09/28/17 19:42 Alkaline Phosphatase 97 U/L (34-104) 09/28/17 19:42 Troponin I 0.01 ng/mL (<0.04) 09/28/17 19:42 Total Protein 8.7 g/dL (6.4-8.9) 09/28/17 19:42 Albumin 3.5 g/dL (3.2-5.2) 09/28/17 19:42 Globulin 5.2 g/dL (2-4) H 09/28/17 19:42 Albumin/Globulin Ratio 0.7 (1-3) L 09/28/17 19:42 Urine Color Millie 09/29/17 00:40 Urine Appearance Turbid 09/29/17 00:40 Urine pH 5.0 (5-9) 09/29/17 00:40 Ur Specific [place] 1.011 (1.010-1.030) 09/29/17 00:40 Urine Protein 1+(30 mg/dl) (Negative) A 09/29/17 00:40 Urine Ketones Negative (Negative) 09/29/17 00:40 Urine Blood 2+ (Negative) A 09/29/17 00:40 Urine Nitrate Positive (Negative) A 09/29/17 00:40 Urine Bilirubin Negative (Negative) 09/29/17 00:40 Urine Urobilinogen Negative (Negative) 09/29/17 00:40 Ur Leukocyte Esterase 3+ (Negative) A 09/29/17 00:40 Urine WBC (Auto) 3+(>20/hpf) (Absent) A 09/29/17 00:40 Urine RBC (Auto) 3+(>10/hpf) (Absent) A 09/29/17 00:40 Ur Squamous Epith Cells Present (Absent) A 09/29/17 00:40 Ur Transition Epith Cell Present (Absent) A 09/29/17 00:40 Ur Renal Epithelial Cell Present (Absent) A 09/29/17 00:40 Urine Bacteria 1+ (Absent) A 09/29/17 00:40 Urine Glucose Negative (Negative) 09/29/17 00:40 Vancomycin Trough 16.1 mcg/mL 10/02/17 06:58 Right leg splinted. Splint c/d/i Assessment: 61yo female right tib/fib fx Plan: Continue IV abx Plan is for Right BKA Tuesday with Dr. Blair
[2017-10-02] MEDS: Acetaminophen SUPP* 650 MG SUPP PR PRN (23:20)
[2017-10-03] MEDS: Baclofen TAB* 20 MG PO SCH ×3 (01:45→17:17)
[2017-10-03] MEDS: D5W IVPB SCH ×4 (02:46→16:19)
[2017-10-03] MEDS: CEFEPIME IVPB SCH ×4 (02:46→16:19)
[2017-10-03] MEDS: metroNIDAZOLE IV 500 MG/100ML* 500 MG/100 ML BAG IVPB SCH ×3 (04:26→21:00)
[2017-10-03 06:59] LABS: EGFR Non-African American 158.2 (>60)
[2017-10-03] MEDS: Enoxaparin(*) 60 MG/0.6 ML SYR SUBCUT SCH ×2 (08:26→21:01)
[2017-10-03] MEDS: Vancomycin(*) 750 MG in NS 0.9% 250 ML* 250 ML IVPB SCH ×2 (08:27→16:54)
[2017-10-03] MEDS: Potassium Chloride LIQUID* 20 MEQ PACKET PO SCH (08:27)
[2017-10-03] MEDS ORDERED: Buffered Lidocaine 0.9% SYRIN* 5 ML/SYR SYRINGE ONE (09:36)
[2017-10-03] MEDS ORDERED: Midazolam* 1 MG/ML 5 ML VIAL (5 MG) ONE (10:11)
[2017-10-03] MEDS ORDERED: fentaNYL* 50 MCG/ML 2 ML VIAL (100 MCG VIAL) ONE (10:11)
[2017-10-03] MEDS ORDERED: Bupivacaine 0.5% PF 10 ML VIAL INJ ONE (11:17)
[2017-10-03] MEDS ORDERED: KETAMINE HCL* 50 MG/ML 10 ML VIAL ONE (11:33)
[2017-10-03] MEDS ORDERED: Propofol* 10 MG/ML 20 ML BTL IV PUSH ONE (11:46)
[2017-10-03] MEDS ORDERED: Ketorolac INJ* 30 MG/ML 1 ML VIAL ONE (11:46)
[2017-10-03] MEDS ORDERED: Dexamethasone IV* 4 MG/ML 1 ML (4 MG) ONE (11:46)
[2017-10-03] MEDS ORDERED: Lidocaine 2% PF * 5 ML VIAL ONE (11:46)
[2017-10-03] MEDS ORDERED: Acetaminophen IV 1GM/100ML * 1,000 MG/100 ML VIAL IVPB ONE (12:13)
[2017-10-03] MEDS ORDERED: HYDROmorphone INJ* 1 MG/ML CARPUJECT SYRINGE IV PRN (12:13)
[2017-10-03] MEDS ORDERED: Naloxone* 0.4 MG/ML 1 ML VIAL IV PRN (12:13)
[2017-10-03] MEDS ORDERED: DiMENhydriNATE IV* 50 MG/ML VIAL IV PUSH PRN (12:13)
[2017-10-03] MEDS ORDERED: Acetaminophen IV 1GM/100ML * 100 ML ONE (12:58)
[2017-10-03] MEDS ORDERED: HYDROmorphone INJ* 2 MG/ML CARPUJECT SYRINGE ONE (12:58)
--- NOTE | 2017-10-03 19:14 | PN ---
Subjective Date of Service: 10/03/17 Interval History: Patient alert and awake in bed, appears comfortable. sister at the bedside states she feels that she is doing well post-op. Family History: Unchanged from Admission Social History: Unchanged from Admission Past Medical History: Unchanged from Admission Objective Active Medications: Acetaminophen (Tylenol Tab*) 650 mg PO Q6H PRN PRN Reason: FEVER/PAIN Last Admin: 10/01/17 20:52 Dose: 650 mg Acetaminophen (Tylenol Supp*) 650 mg [place] Q4H PRN PRN Reason: TEMP EQUAL OR GREATER 101 F Last Admin: 10/02/17 23:20 Dose: 650 mg Albuterol (Ventolin 2.5 Mg/3 Ml Neb.Kristy*) 2.5 mg INH Q2H PRN PRN Reason: SOB/WHEEZING Baclofen (Lioresal Tab*) 20 mg PO Q8H [facility] Last Admin: 10/03/17 17:17 Dose: Not Given Docusate Sodium (Colace Liq*) 200 mg PO BID PRN PRN Reason: CONSTIPATION Enoxaparin Sodium (Lovenox(*)) 50 mg SUBCUT Q12H [facility] Last Admin: 10/03/17 08:26 Dose: Not Given Metronidazole/Sodium Chloride (Flagyl 500 Mg Ivpb*) 500 mg in 100 mls @ 100 mls /hr IVPB 0400,1200,2000 [facility] Last Admin: 10/03/17 15:03 Dose: 100 mls/hr Vancomycin HCl 750 mg/ Sodium (Chloride) 250 mls @ 166.667 mls/hr IVPB Q8H [facility] Last Admin: 10/03/17 16:54 Dose: 166.667 mls/hr Cefepime HCl 1 gm/ Dextrose 50 mls @ 100 mls/hr IVPB 0300,1500 [facility] Last Admin: 10/03/17 16:19 Dose: 100 mls/hr Lactated Ringer's (Lactated Ringers 1000 Ml Bag*) 1,000 mls @ 100 mls/hr IV PER RATE [facility] Last Admin: 10/03/17 15:03 Dose: 100 mls/hr Morphine Sulfate (Morphine Vial*) 2 mg IV Q2H PRN PRN Reason: PAIN Last Admin: 09/30/17 19:57 Dose: 2 mg Naloxone HCl (Narcan*) 0.08 mg IV Q2M PRN PRN Reason: severe induced resp depression Stop: 10/04/17 12:12 Ondansetron HCl (Zofran Inj*) 4 mg IV Q6H PRN PRN Reason: NAUSEA Pharmacy Consult (Vancomycin Per Pharmacy*) 1 note FOLLOW UP .VANC PER PHARMACY [facility] Polyvinyl Alcohol (Polyvinyl Alcohol 1.4% Opth*) 1 drop BOTH EYES Q2H PRN PRN Reason: DRY EYE Last Admin: 10/02/17 18:08 Dose: 1 drop Potassium Chloride (Klor-Con Liquid*) 20 meq PO DAILY [facility] Last Admin: 10/03/17 08:27 Dose: Not Given Vital Signs - 8 hr 10/03/17 10/03/17 10/03/17 12:46 12:50 12:55 Temperature Pulse Rate 88 86 87 Respiratory 19 19 Rate Blood Pressure 160/92 165/90 174/91 (mmHg) O2 Sat by Pulse 100 100 97 Oximetry 10/03/17 10/03/17 10/03/17 13:00 13:15 13:30 Temperature 97.7 F Pulse Rate 84 82 77 Respiratory 20 22 20 Rate Blood Pressure 170/94 161/84 169/89 (mmHg) O2 Sat by Pulse 98 96 94 Oximetry 10/03/17 10/03/17 10/03/17 13:36 13:45 13:57 Temperature Pulse Rate 83 84 Respiratory 22 22 21 Rate Blood Pressure 177/99 159/99 (mmHg) O2 Sat by Pulse 94 94 Oximetry 10/03/17 10/03/17 10/03/17 14:00 14:21 14:55 Temperature 98.0 F Pulse Rate 79 76 Respiratory 20 16 16 Rate Blood Pressure 160/88 160/80 (mmHg) O2 Sat by Pulse 94 96 Oximetry 10/03/17 10/03/17 15:27 15:52 Temperature 99.3 F Pulse Rate 80 Respiratory 20 15 Rate Blood Pressure 166/80 (mmHg) O2 Sat by Pulse 99 Oximetry Oxygen Devices in Use Now: None Appearance: chroncially ill appearing 61 yo female Alert and awake, NAD Eyes: No Scleral Icterus, PERRLA Ears/Nose/Mouth/Throat: Mucous Membranes Moist Respiratory: Symmetrical Chest Expansion and Respiratory Effort, Clear to Auscultation Cardiovascular: NL Sounds; No Murmurs; No JVD, RRR, No Edema Abdominal: NL Sounds; No Tenderness; No Distention Extremities: - - s/p right BKA Skin: No Rash or Ulcers, No Nodules or Sclerosis Neurological: Alert and Oriented x 3, NL Sensation, NL Muscle Strength and Tone Lines/Tubes/Other Access: Clean, Dry and Intact Peripheral IV Nutrition: Taking PO's Result Diagrams: 10/01/17 06:21 10/03/17 06:28 Additional Lab and Data: . Microbiology and Other Data: Microbiology 09/29/17 00:40 Urine Culture - Final Urine Assess/Plan/Problems-Billing . Assessment: 61 yo female with severe MS, now non-verbal with inexplicable injuries including old fractures and open wounds -- subject of medical neglect . - Patient Problems (1) Tibia and fibula open fracture, right Comment: Management per Dr. Haynes POD #0 s/p BKA Hold rivaroxaban until cleared post-op for AC. vancomycin, cefepime, flagyl (2) Hx of pulmonary embolus Comment: Resume rivaroxaban when appropriate post-op. (3) Hypokalemia Comment: - resolved with replacement; recheck in am (4) Multiple sclerosis Comment: End-stage MS. Continue baclofen. (5) Swallowing dysfunction Comment: SP swallow eval pending. Continue nectar thick liquids, pureed solids. (6) DVT prophylaxis Comment: Lovenox BID Status and Disposition: inpatient. discharge disposition to be decided.
--- NOTE | 2017-10-03 21:21 | OP ---
DATE OF OPERATION: 10/03/17 - ROOM #[id number] DATE OF : 57 SURGEON: Bill Torres MD HOOKER OFF: APRIL Thomason PRE-OP DIAGNOSIS: Chronic open grade 3 tibia fibula fracture, right distal tibia. POST-OP DIAGNOSIS: Chronic open grade 3 tibia fibula fracture, right distal tibia. OPERATIVE PROCEDURE: Right [id number] amputation. DESCRIPTION OF PROCEDURE: The patient was taken to the operating room where a transverse fish-mouth incision was made in the proximal third of the right tibia two fingerbreadths below the level of the tibial cut. We reflected the periosteum proximally and transected the tibia and the fibula 1 cm more proximally. Flexing through the skin incision, the anterior compartment incision and the bone osteotomies, we were able to expose the posterior compartment which was transected with a #10 blade, delivering the leg to pathology. We dropped the tourniquet and hemostasis was obtained with suture ligatures. We irrigated thoroughly and closed the posterior to anterior flaps with #1 Vicryl, 2-0 Vicryl for the subcu tissue and then 2-0 Prolene sutures for the skin. Interrupted vertical mattress sutures applied. The patient tolerated the above well. Plaster splint applied. [id number]/CPS #: [id number] MTDD
[2017-10-04] MEDS: Vancomycin(*) 750 MG in NS 0.9% 250 ML* 250 ML IVPB SCH ×3 (00:17→16:39)
[2017-10-04] MEDS: Baclofen TAB* 20 MG PO SCH ×3 (02:05→18:09)
[2017-10-04] MEDS: CEFEPIME IVPB SCH ×4 (03:22→14:32)
[2017-10-04] MEDS: D5W IVPB SCH ×4 (03:22→14:32)
[2017-10-04] MEDS: metroNIDAZOLE IV 500 MG/100ML* 500 MG/100 ML BAG IVPB SCH ×2 (04:04→12:52)
[2017-10-04 05:25] LABS: ABS Basophils 0.1 10^3/ul (0-0.2); ABS Eosinophils 0.4 10^3/ul (0-0.6); ABS Monocytes 1.1 10^3/ul (0-0.8); ABS Neutrophils 8.6 10^3/ul (1.5-7.7); ABS Nucleated RBC 0 10^3/ul; Eosinophil % 2.6 % (0-6); Hematocrit 29 % (35-47); Hemoglobin 9.5 g/dl (12.0-16.0); Lymphocyte % 28.1 % (25-47); Mean Corpuscular HGB Conc 33 g/dl (31-36); Mean Corpuscular Hemoglobin 27 pg (27-31); Mean Corpuscular Volume 82 fL (80-97); Nucleated Red Blood Cells % 0; Platelet Count 564 10^3/ul (150-450); Red Blood Count 3.54 10^6/ul (4.0-5.4); Red Cell Distribution Width 14 % (10.5-15); White Blood Count 14.2 10^3/ul (3.5-10.8)
[2017-10-04 05:44] LABS: EGFR Non-African American 178.1 (>60)
[2017-10-04] MEDS: Enoxaparin(*) 60 MG/0.6 ML SYR SUBCUT SCH ×2 (07:51→20:45)
[2017-10-04] MEDS: Potassium Chloride LIQUID* 20 MEQ PACKET PO SCH ×4 (08:03→16:40)
[2017-10-04] MEDS ORDERED: Magnesium Sulfate 2 GM IV* 2 GM/50 ML BAG IVPB ONE (08:36)
[2017-10-04] MEDS: Acetaminophen TAB* 325 MG PO PRN (09:31)
[2017-10-04] MEDS: Morphine VIAL* 4 MG/ML VIAL (1 ml vial) IV PRN (15:46)
--- NOTE | 2017-10-04 15:49 | PN ---
Progress Note - Progress Note Date of Service: 10/04/17 SOAP: Subjective: []Patient seen at bedside. She is nonverbal and does not participate in exam. Objective: [] Vital Signs Temp 97.9 F 10/04/17 11:20 Pulse 88 10/04/17 11:20 Resp 18 10/04/17 15:46 BP 152/75 10/04/17 11:20 Pulse Ox 97 10/04/17 11:20 Intake & Output 10/03/17 10/04/17 10/04/17 18:59 06:59 18:59 Intake Total 1140 1186 Output Total 1000 1775 1500 Balance 140 -589 -1500 Weight 120 lb 12.8 oz Intake: IV Fluids 900 706 ABX - CEFEPIME 52 ABX - FLAGYL 104 ABX - VANCOMYCIN 550 LR 900 Oral 240 480 Output: [place] 1000 1775 1500 Other: # Bowel Movements 1 Estimated Stool Amount Medium Laboratory Last Values WBC 14.2 10^3/ul (3.5-10.8) H 10/04/17 05:11 RBC 3.54 10^6/ul (4.0-5.4) L 10/04/17 05:11 Hgb 9.5 g/dl (12.0-16.0) L 10/04/17 05:11 Hct 29 % (35-47) L 10/04/17 05:11 MCV 82 fL (80-97) 10/04/17 05:11 MCH 27 pg (27-31) 10/04/17 05:11 MCHC 33 g/dl (31-36) 10/04/17 05:11 RDW 14 % (10.5-15) 10/04/17 05:11 Plt Count 564 10^3/ul (150-450) H 10/04/17 05:11 MPV 7.0 um3 (7.4-10.4) L 10/04/17 05:11 Neut % (Auto) 60.9 % (38-83) 10/04/17 05:11 Lymph % (Auto) 28.1 % (25-47) 10/04/17 05:11 [place] % (Auto) 7.5 % (0-7) H 10/04/17 05:11 Eos % (Auto) 2.6 % (0-6) 10/04/17 05:11 Baso % (Auto) 0.9 % (0-2) 10/04/17 05:11 Absolute Neuts (auto) 8.6 10^3/ul (1.5-7.7) H 10/04/17 05:11 Absolute Lymphs (auto) 4.0 10^3/ul (1.0-4.8) 10/04/17 05:11 Absolute Monos (auto) 1.1 10^3/ul (0-0.8) H 10/04/17 05:11 Absolute Eos (auto) 0.4 10^3/ul (0-0.6) 10/04/17 05:11 Absolute Basos (auto) 0.1 10^3/ul (0-0.2) 10/04/17 05:11 Absolute Nucleated RBC 0 10^3/ul 10/04/17 05:11 Nucleated RBC % 0 10/04/17 05:11 INR (Anticoag Therapy) 1.33 (0.77-1.02) H 09/28/17 19:42 APTT 28.9 seconds (26.0-36.3) 09/28/17 19:42 Sodium 136 mmol/L (139-145) L 10/04/17 05:11 Potassium 3.3 mmol/L (3.5-5.0) L 10/04/17 05:11 Chloride 104 mmol/L (101-111) 10/04/17 05:11 Carbon Dioxide 25 mmol/L (22-32) 10/04/17 05:11 Anion Gap 7 mmol/L (2-11) 10/04/17 05:11 BUN 5 mg/dL (6-24) L 10/04/17 05:11 Creatinine 0.37 mg/dL (0.51-0.95) L 10/04/17 05:11 Est GFR ( Amer) 229.1 (>60) 10/04/17 05:11 Est GFR (Non-Af Amer) 178.1 (>60) 10/04/17 05:11 BUN/Creatinine Ratio 13.5 (8-20) 10/04/17 05:11 Glucose 95 mg/dL (70-100) 10/04/17 05:11 Lactic Acid 1.3 mmol/L (0.5-2.0) 09/28/17 22:46 Calcium 8.0 mg/dL (8.6-10.3) L 10/04/17 05:11 Phosphorus 2.6 mg/dL (2.5-5.0) 10/03/17 06:28 Magnesium 1.8 mg/dL (1.9-2.7) L 10/04/17 05:11 Total Bilirubin 0.40 mg/dL (0.2-1.0) 09/28/17 19:42 AST 57 U/L (13-39) H 09/28/17 19:42 ALT 83 U/L (7-52) H 09/28/17 19:42 Alkaline Phosphatase 97 U/L (34-104) 09/28/17 19:42 Troponin I 0.01 ng/mL (<0.04) 09/28/17 19:42 Total Protein 8.7 g/dL (6.4-8.9) 09/28/17 19:42 Albumin 3.5 g/dL (3.2-5.2) 09/28/17 19:42 Globulin 5.2 g/dL (2-4) H 09/28/17 19:42 Albumin/Globulin Ratio 0.7 (1-3) L 09/28/17 19:42 Urine Color Millie 09/29/17 00:40 Urine Appearance Turbid 09/29/17 00:40 Urine pH 5.0 (5-9) 09/29/17 00:40 Ur Specific [place] 1.011 (1.010-1.030) 09/29/17 00:40 Urine Protein 1+(30 mg/dl) (Negative) A 09/29/17 00:40 Urine Ketones Negative (Negative) 09/29/17 00:40 Urine Blood 2+ (Negative) A 09/29/17 00:40 Urine Nitrate Positive (Negative) A 09/29/17 00:40 Urine Bilirubin Negative (Negative) 09/29/17 00:40 Urine Urobilinogen Negative (Negative) 09/29/17 00:40 Ur Leukocyte Esterase 3+ (Negative) A 09/29/17 00:40 Urine WBC (Auto) 3+(>20/hpf) (Absent) A 09/29/17 00:40 Urine RBC (Auto) 3+(>10/hpf) (Absent) A 09/29/17 00:40 Ur Squamous Epith Cells Present (Absent) A 09/29/17 00:40 Ur Transition Epith Cell Present (Absent) A 09/29/17 00:40 Ur Renal Epithelial Cell Present (Absent) A 09/29/17 00:40 Urine Bacteria 1+ (Absent) A 09/29/17 00:40 Urine Glucose Negative (Negative) 09/29/17 00:40 Vancomycin Trough 16.1 mcg/mL 10/02/17 06:58 General: NAD, nonverbal Right leg splinted. Splint c/d/i, no erythema or tenderness proximal to dressing. Assessment: 61yo female right tib/fib fx s/p BKA Plan: Continue IV abx - vanco and cefepime Dressing to remain CDI Work with PT/OT, NWB RLE
--- NOTE | 2017-10-04 17:19 | PN ---
Subjective Date of Service: 10/04/17 Interval History: sitting up in the chair alert in NAD. Per sister who is at the bedside she thinks she is doing well today, she reports she is eating some food but not drinking much Family History: Unchanged from Admission Social History: Unchanged from Admission Past Medical History: Unchanged from Admission Objective Active Medications: Acetaminophen (Tylenol Tab*) 650 mg PO Q6H PRN PRN Reason: FEVER/PAIN Last Admin: 10/04/17 09:31 Dose: 650 mg Acetaminophen (Tylenol Supp*) 650 mg [place] Q4H PRN PRN Reason: TEMP EQUAL OR GREATER 101 F Last Admin: 10/02/17 23:20 Dose: 650 mg Albuterol (Ventolin 2.5 Mg/3 Ml Neb.Kristy*) 2.5 mg INH Q2H PRN PRN Reason: SOB/WHEEZING Baclofen (Lioresal Tab*) 20 mg PO Q8H [facility] Last Admin: 10/04/17 08:03 Dose: 20 mg Docusate Sodium (Colace Liq*) 200 mg PO BID PRN PRN Reason: CONSTIPATION Enoxaparin Sodium (Lovenox(*)) 50 mg SUBCUT Q12H [facility] Last Admin: 10/04/17 07:51 Dose: 50 mg Vancomycin HCl 750 mg/ Sodium (Chloride) 250 mls @ 166.667 mls/hr IVPB Q8H [facility] Last Admin: 10/04/17 16:39 Dose: 166.667 mls/hr Cefepime HCl 1 gm/ Dextrose 50 mls @ 100 mls/hr IVPB 0300,1500 [facility] Last Admin: 10/04/17 14:32 Dose: 100 mls/hr Lactated Ringer's (Lactated Ringers 1000 Ml Bag*) 1,000 mls @ 100 mls/hr IV PER RATE [facility] Last Admin: 10/04/17 10:03 Dose: 100 mls/hr Morphine Sulfate (Morphine Vial*) 2 mg IV Q2H PRN PRN Reason: PAIN Last Admin: 10/04/17 15:46 Dose: 2 mg Ondansetron HCl (Zofran Inj*) 4 mg IV Q6H PRN PRN Reason: NAUSEA Pharmacy Consult (Vancomycin Per Pharmacy*) 1 note FOLLOW UP .VANC PER PHARMACY [facility] Polyvinyl Alcohol (Polyvinyl Alcohol 1.4% Opth*) 1 drop BOTH EYES Q2H PRN PRN Reason: DRY EYE Last Admin: 10/02/17 18:08 Dose: 1 drop Potassium Chloride (Klor-Con Liquid*) 20 meq PO DAILY [facility] Last Admin: 10/04/17 08:03 Dose: 20 meq Vital Signs - 8 hr 10/04/17 10/04/17 10/04/17 09:22 11:20 15:13 Temperature 97.9 F 97.9 F Pulse Rate 91 88 97 Respiratory 20 18 24 Rate Blood Pressure 152/75 (mmHg) O2 Sat by Pulse 96 97 92 Oximetry 10/04/17 10/04/17 15:44 15:46 Temperature 97.9 F Pulse Rate 90 Respiratory 20 18 Rate Blood Pressure 152/82 (mmHg) O2 Sat by Pulse 99 Oximetry Appearance: 61 yo female nonverbal at baseline sitting up in a chair in NAD Eyes: No Scleral Icterus, PERRLA Ears/Nose/Mouth/Throat: NL Teeth, Lips, Gums, Mucous Membranes Moist Neck: NL Appearance and Movements; NL JVP Respiratory: Symmetrical Chest Expansion and Respiratory Effort, Clear to Auscultation Cardiovascular: NL Sounds; No Murmurs; No JVD, RRR Abdominal: NL Sounds; No Tenderness; No Distention Extremities: - - s/p Right BKA Skin: No Rash or Ulcers Neurological: - - alert. Lines/Tubes/Other Access: Clean, Dry and Intact Peripheral IV Nutrition: Taking PO's Result Diagrams: 10/04/17 05:11 10/04/17 05:11 Additional Lab and Data: . Microbiology and Other Data: Microbiology 09/29/17 00:40 Urine Culture - Final Urine Assess/Plan/Problems-Billing . Assessment: 61 yo female with severe MS, now non-verbal with inexplicable injuries including old fractures and open wounds -- subject of medical neglect . - Patient Problems (1) Tibia and fibula open fracture, right Comment: Management per Dr. Haynes POD #1 s/p BKA HH stable Hold rivaroxaban until cleared post-op for AC. vancomycin, cefepime, DC flagyl (side consulted ID - recommends IV abx up until discharge then ok to DC) (2) Hx of pulmonary embolus Comment: Resume rivaroxaban when appropriate post-op. (3) Hypokalemia Comment: - give replacement; recheck in am - replace mag+ (4) Multiple sclerosis Comment: End-stage MS. Continue baclofen. (5) Swallowing dysfunction Comment: SP swallow eval - noted dysphagia Continue honey thick liquids, pureed solids. (6) DVT prophylaxis Comment: Lovenox BID Status and Disposition: inpatient. Plan to DC to senior living facility - place to be determined
[2017-10-04] MEDS ORDERED: NS 0.9% 1000 ML* 1,000 ML IV SCH (19:00)
[2017-10-05] MEDS: Vancomycin(*) 750 MG in NS 0.9% 250 ML* 250 ML IVPB SCH ×3 (00:31→17:01)
[2017-10-05] MEDS: Baclofen TAB* 20 MG PO SCH ×3 (00:56→17:49)
[2017-10-05] MEDS: CEFEPIME IVPB SCH ×4 (03:15→15:19)
[2017-10-05] MEDS: D5W IVPB SCH ×4 (03:15→15:19)
[2017-10-05 07:37] LABS: ABS Basophils 0.1 10^3/ul (0-0.2); ABS Eosinophils 0.6 10^3/ul (0-0.6); ABS Lymphocytes 3.5 10^3/ul (1.0-4.8); ABS Monocytes 1.1 10^3/ul (0-0.8); ABS Neutrophils 8.8 10^3/ul (1.5-7.7); ABS Nucleated RBC 0 10^3/ul; Hematocrit 31 % (35-47); Mean Corpuscular HGB Conc 33 g/dl (31-36); Mean Corpuscular Hemoglobin 27 pg (27-31); Mean Corpuscular Volume 83 fL (80-97); Nucleated Red Blood Cells % 0; Platelet Count 620 10^3/ul (150-450); Red Cell Distribution Width 15 % (10.5-15); White Blood Count 14.1 10^3/ul (3.5-10.8)
[2017-10-05 07:55] LABS: EGFR Non-African American 189.9 (>60)
[2017-10-05] MEDS: Morphine VIAL* 4 MG/ML VIAL (1 ml vial) IV PRN (08:27)
[2017-10-05] MEDS ORDERED: NS 0.9% 1000 ML* 1,000 ML IV SCH (08:45)
[2017-10-05] MEDS: amLODIPine TAB* 5 MG PO SCH (08:51)
[2017-10-05] MEDS: Enoxaparin(*) 60 MG/0.6 ML SYR SUBCUT SCH ×2 (08:52→22:52)
[2017-10-05] MEDS: Potassium Chloride LIQUID* 20 MEQ PACKET PO SCH ×2 (08:54→22:47)
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
[2017-10-05] MEDS ORDERED: hydrALAZINE IV* 20 MG/ML VIAL IV SLOW PU PRN (14:11)
--- NOTE | 2017-10-05 16:57 | PN ---
Progress Note - Progress Note Date of Service: 10/05/17 SOAP: Subjective: []Patient seen at bedside. She is nonverbal. Objective: [] Vital Signs Temp 98.3 F 10/05/17 15:50 Pulse 97 10/05/17 15:50 Resp 20 10/05/17 15:50 BP 169/80 10/05/17 15:50 Pulse Ox 98 10/05/17 15:50 Intake & Output 10/04/17 10/05/17 10/05/17 18:59 06:59 18:59 Intake Total 1164 980 Output Total 1500 1750 1550 Balance -1500 -586 -570 Weight 114 lb 11.2 oz Intake: IV Fluids 1044 980 ABX - VANCOMYCIN 530 LR 514 980 Oral 120 0 Output: Urine 650 [place] 1500 1750 900 Other: # Bowel Movements 0 Laboratory Last Values WBC 14.1 10^3/ul (3.5-10.8) H 10/05/17 07:26 RBC 3.70 10^6/ul (4.0-5.4) L 10/05/17 07:26 Hgb 10.0 g/dl (12.0-16.0) L 10/05/17 07:26 Hct 31 % (35-47) L 10/05/17 07:26 MCV 83 fL (80-97) 10/05/17 07:26 MCH 27 pg (27-31) 10/05/17 07:26 MCHC 33 g/dl (31-36) 10/05/17 07:26 RDW 15 % (10.5-15) 10/05/17 07:26 Plt Count 620 10^3/ul (150-450) H D 10/05/17 07:26 MPV 7.0 um3 (7.4-10.4) L 10/05/17 07:26 Neut % (Auto) 62.1 % (38-83) 10/05/17 07:26 Lymph % (Auto) 25.0 % (25-47) 10/05/17 07:26 [place] % (Auto) 8.0 % (0-7) H 10/05/17 07:26 Eos % (Auto) 4.0 % (0-6) 10/05/17 07:26 Baso % (Auto) 0.9 % (0-2) 10/05/17 07:26 Absolute Neuts (auto) 8.8 10^3/ul (1.5-7.7) H 10/05/17 07:26 Absolute Lymphs (auto) 3.5 10^3/ul (1.0-4.8) 10/05/17 07:26 Absolute Monos (auto) 1.1 10^3/ul (0-0.8) H 10/05/17 07:26 Absolute Eos (auto) 0.6 10^3/ul (0-0.6) 10/05/17 07:26 Absolute Basos (auto) 0.1 10^3/ul (0-0.2) 10/05/17 07:26 Absolute Nucleated RBC 0 10^3/ul 10/05/17 07:26 Nucleated RBC % 0 10/05/17 07:26 INR (Anticoag Therapy) 1.33 (0.77-1.02) H 09/28/17 19:42 APTT 28.9 seconds (26.0-36.3) 09/28/17 19:42 Sodium 138 mmol/L (139-145) L 10/05/17 07:26 Potassium 3.3 mmol/L (3.5-5.0) L 10/05/17 07:26 Chloride 105 mmol/L (101-111) 10/05/17 07:26 Carbon Dioxide 24 mmol/L (22-32) 10/05/17 07:26 Anion Gap 9 mmol/L (2-11) 10/05/17 07:26 BUN 5 mg/dL (6-24) L 10/05/17 07:26 Creatinine 0.35 mg/dL (0.51-0.95) L 10/05/17 07:26 Est GFR ( Amer) 244.3 (>60) 10/05/17 07:26 Est GFR (Non-Af Amer) 189.9 (>60) 10/05/17 07:26 BUN/Creatinine Ratio 14.3 (8-20) 10/05/17 07:26 Glucose 94 mg/dL (70-100) 10/05/17 07:26 Lactic Acid 0.5 mmol/L (0.5-2.0) 10/05/17 08:50 Calcium 8.0 mg/dL (8.6-10.3) L 10/05/17 07:26 Phosphorus 2.6 mg/dL (2.5-5.0) 10/03/17 06:28 Magnesium 1.9 mg/dL (1.9-2.7) 10/05/17 07:26 Total Bilirubin 0.40 mg/dL (0.2-1.0) 09/28/17 19:42 AST 57 U/L (13-39) H 09/28/17 19:42 ALT 83 U/L (7-52) H 09/28/17 19:42 Alkaline Phosphatase 97 U/L (34-104) 09/28/17 19:42 Troponin I 0.01 ng/mL (<0.04) 09/28/17 19:42 C-Reactive Protein 39.45 mg/L (< 5.00) H 10/05/17 07:26 Total Protein 8.7 g/dL (6.4-8.9) 09/28/17 19:42 Albumin 3.5 g/dL (3.2-5.2) 09/28/17 19:42 Globulin 5.2 g/dL (2-4) H 09/28/17 19:42 Albumin/Globulin Ratio 0.7 (1-3) L 09/28/17 19:42 Urine Color Millie 09/29/17 00:40 Urine Appearance Turbid 09/29/17 00:40 Urine pH 5.0 (5-9) 09/29/17 00:40 Ur Specific [place] 1.011 (1.010-1.030) 09/29/17 00:40 Urine Protein 1+(30 mg/dl) (Negative) A 09/29/17 00:40 Urine Ketones Negative (Negative) 09/29/17 00:40 Urine Blood 2+ (Negative) A 09/29/17 00:40 Urine Nitrate Positive (Negative) A 09/29/17 00:40 Urine Bilirubin Negative (Negative) 09/29/17 00:40 Urine Urobilinogen Negative (Negative) 09/29/17 00:40 Ur Leukocyte Esterase 3+ (Negative) A 09/29/17 00:40 Urine WBC (Auto) 3+(>20/hpf) (Absent) A 09/29/17 00:40 Urine RBC (Auto) 3+(>10/hpf) (Absent) A 09/29/17 00:40 Ur Squamous Epith Cells Present (Absent) A 09/29/17 00:40 Ur Transition Epith Cell Present (Absent) A 09/29/17 00:40 Ur Renal Epithelial Cell Present (Absent) A 09/29/17 00:40 Urine Bacteria 1+ (Absent) A 09/29/17 00:40 Urine Glucose Negative (Negative) 09/29/17 00:40 Vancomycin Trough 16.0 mcg/mL 10/05/17 07:26 General: NAD, nonverbal Right leg dressing c/d/i, no erythema or tenderness proximal to dressing. Assessment: 61yo female right tib/fib fx s/p BKA Plan: Continue IV abx Dressing to remain CDI Work with PT/OT, NWB RLE
[2017-10-06] MEDS: Vancomycin(*) 750 MG in NS 0.9% 250 ML* 250 ML IVPB SCH ×2 (00:33→08:26)
[2017-10-06] MEDS: Baclofen TAB* 20 MG PO SCH ×3 (00:39→17:09)
[2017-10-06] MEDS: CEFEPIME IVPB SCH ×2 (04:03)
[2017-10-06] MEDS: D5W IVPB SCH ×2 (04:03)
[2017-10-06] MEDS: Enoxaparin(*) 60 MG/0.6 ML SYR SUBCUT SCH (09:26)
[2017-10-06] MEDS: Potassium Chloride LIQUID* 20 MEQ PACKET PO SCH ×2 (09:28→21:02)
[2017-10-06] MEDS: amLODIPine TAB* 5 MG PO SCH (09:28)
--- NOTE | 2017-10-06 11:15 | PN ---
Progress Note - Progress Note Date of Service: 10/06/17 SOAP: Subjective: []Patient seen at bedside. She is nonverbal and is unable to participate with exam. Objective: []General: NAD, nonverbal Right leg dressing c/d/i, no erythema or tenderness proximal to dressing. left calf supple and nontender without erythema, edema or palpable cords Assessment: 61yo female right tib/fib fx s/p BKA Plan: Continue IV abx Dressing to remain CDI Work with PT/OT, NWB RLE Vital Signs Temp 98.9 F 10/06/17 07:33 Pulse 94 10/06/17 07:33 Resp 16 10/06/17 08:00 BP 154/76 10/06/17 07:33 Pulse Ox 97 10/06/17 07:33 Intake & Output 10/05/17 10/06/17 10/06/17 18:59 06:59 18:59 Intake Total 980 1713 Output Total 1550 1900 Balance -570 -187 Weight 115 lb Intake: IV Fluids 980 1043 LR 980 NS (0.9%) 1043 IVPB 550 ABX - VANCOMYCIN 550 Oral 0 120 Output: Urine 650 [place] 900 1900 Other: # Bowel Movements 0 Laboratory Last Values WBC 14.1 10^3/ul (3.5-10.8) H 10/05/17 07:26 RBC 3.70 10^6/ul (4.0-5.4) L 10/05/17 07:26 Hgb 10.0 g/dl (12.0-16.0) L 10/05/17 07:26 Hct 31 % (35-47) L 10/05/17 07:26 MCV 83 fL (80-97) 10/05/17 07:26 MCH 27 pg (27-31) 10/05/17 07:26 MCHC 33 g/dl (31-36) 10/05/17 07:26 RDW 15 % (10.5-15) 10/05/17 07:26 Plt Count 620 10^3/ul (150-450) H D 10/05/17 07:26 MPV 7.0 um3 (7.4-10.4) L 10/05/17 07:26 Neut % (Auto) 62.1 % (38-83) 10/05/17 07:26 Lymph % (Auto) 25.0 % (25-47) 10/05/17 07:26 [place] % (Auto) 8.0 % (0-7) H 10/05/17 07:26 Eos % (Auto) 4.0 % (0-6) 10/05/17 07:26 Baso % (Auto) 0.9 % (0-2) 10/05/17 07:26 Absolute Neuts (auto) 8.8 10^3/ul (1.5-7.7) H 10/05/17 07:26 Absolute Lymphs (auto) 3.5 10^3/ul (1.0-4.8) 10/05/17 07:26 Absolute Monos (auto) 1.1 10^3/ul (0-0.8) H 10/05/17 07:26 Absolute Eos (auto) 0.6 10^3/ul (0-0.6) 10/05/17 07: Absolute Basos (auto) 0.1 10^3/ul (0-0.2) 10/05/17 07:26 Absolute Nucleated RBC 0 10^3/ul 10/05/17 07:26 Nucleated RBC % 0 10/05/17 07:26 INR (Anticoag Therapy) 1.33 (0.77-1.02) H 09/28/17 19:42 APTT 28.9 seconds (26.0-36.3) 09/28/17 19:42 Sodium 138 mmol/L (139-145) L 10/05/17 07:26 Potassium 3.3 mmol/L (3.5-5.0) L 10/05/17 07:26 Chloride 105 mmol/L (101-111) 10/05/17 07:26 Carbon Dioxide 24 mmol/L (22-32) 10/05/17 07:26 Anion Gap 9 mmol/L (2-11) 10/05/17 07:26 BUN 5 mg/dL (6-24) L 10/05/17 07:26 Creatinine 0.35 mg/dL (0.51-0.95) L 10/05/17 07:26 Est GFR ( Amer) 244.3 (>60) 10/05/17 07:26 Est GFR (Non-Af Amer) 189.9 (>60) 10/05/17 07:26 BUN/Creatinine Ratio 14.3 (8-20) 10/05/17 07:26 Glucose 94 mg/dL (70-100) 10/05/17 07:26 Lactic Acid 0.5 mmol/L (0.5-2.0) 10/05/17 08:50 Calcium 8.0 mg/dL (8.6-10.3) L 10/05/17 07:26 Phosphorus 2.6 mg/dL (2.5-5.0) 10/03/17 06:28 Magnesium 1.9 mg/dL (1.9-2.7) 10/05/17 07:26 Total Bilirubin 0.40 mg/dL (0.2-1.0) 09/28/17 19:42 AST 57 U/L (13-39) H 09/28/17 19:42 ALT 83 U/L (7-52) H 09/28/17 19:42 Alkaline Phosphatase 97 U/L (34-104) 09/28/17 19:42 Troponin I 0.01 ng/mL (<0.04) 09/28/17 19:42 C-Reactive Protein 39.45 mg/L (< 5.00) H 10/05/17 07:26 Total Protein 8.7 g/dL (6.4-8.9) 09/28/17 19:42 Albumin 3.5 g/dL (3.2-5.2) 09/28/17 19:42 Globulin 5.2 g/dL (2-4) H 09/28/17 19:42 Albumin/Globulin Ratio 0.7 (1-3) L 09/28/17 19:42 Urine Color Millie 09/29/17 00:40 Urine Appearance Turbid 09/29/17 00:40 Urine pH 5.0 (5-9) 09/29/17 00:40 Ur Specific [place] 1.011 (1.010-1.030) 09/29/17 00:40 Urine Protein 1+(30 mg/dl) (Negative) A 09/29/17 00:40 Urine Ketones Negative (Negative) 09/29/17 00:40 Urine Blood 2+ (Negative) A 09/29/17 00:40 Urine Nitrate Positive (Negative) A 09/29/17 00:40 Urine Bilirubin Negative (Negative) 09/29/17 00:40 Urine Urobilinogen Negative (Negative) 09/29/17 00:40 Ur Leukocyte Esterase 3+ (Negative) A 09/29/17 00:40 Urine WBC (Auto) 3+(>20/hpf) (Absent) A 09/29/17 00:40 Urine RBC (Auto) 3+(>10/hpf) (Absent) A 09/29/17 00:40 Ur Squamous Epith Cells Present (Absent) A 09/29/17 00:40 Ur Transition Epith Cell Present (Absent) A 09/29/17 00:40 Ur Renal Epithelial Cell Present (Absent) A 09/29/17 00:40 Urine Bacteria 1+ (Absent) A 09/29/17 00:40 Urine Glucose Negative (Negative) 09/29/17 00:40 Vancomycin Trough 16.0 mcg/mL 10/05/17 07:26
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
[2017-10-06] MEDS ORDERED: Rivaroxaban TAB(*) 20 MG TAB PO SCH (18:00)
[2017-10-07] MEDS: Baclofen TAB* 20 MG PO SCH ×2 (00:22→09:52)
[2017-10-07 09:46] VITALS: BP 172/79
[2017-10-07] MEDS: amLODIPine TAB* 5 MG PO SCH (09:52)
[2017-10-07] MEDS: Potassium Chloride LIQUID* 20 MEQ PACKET PO SCH (09:55)
[2017-10-09] MEDS ORDERED: Vancomycin Trough Check NOTE FOLLOW UP ONE (07:30)
== END 2017-10-07 10:30 | DRG 474 ==
LOC: ED 17:35 → MED 09-29 → EEVIPCON 09-29 → SSU 10-03 14:39
PROVIDERS: ADMIT Hospitalist; ATTEND Internal Medicine
PROC: 0Y6H0Z1 Detachment at Right Lower Leg, High, Open Approach (ICD-10-PCS; principal; 2017-10-03 11:45)
DX: S82.301 Unspecified fracture of lower end of right tibia (principal); S82.831C Other fracture of upper and lower end of right fibula, initial encounter for open fracture type IIIA, IIIB, or IIIC; T76.01XA Adult neglect or abandonment, suspected, initial encounter; Z68.1 Body mass index [BMI] 19.9 or less, adult; L03.115 Cellulitis of right lower limb; X58.XXXA Exposure to other specified factors, initial encounter; Y92.9 Unspecified place or not applicable; G35 Multiple sclerosis; Z99.3 Dependence on wheelchair; M85.861 Other specified disorders of bone density and structure, right lower leg; Z74.01 Bed confinement status; Z66 Do not resuscitate; E87.6 Hypokalemia; E83.39 Other disorders of phosphorus metabolism; E83.42 Hypomagnesemia; D47.3 Essential (hemorrhagic) thrombocythemia; Z86.711 Personal history of pulmonary embolism; Z79.899 Other long term (current) drug therapy; L89.510 Pressure ulcer of right ankle, unstageable; B96.4 Proteus (mirabilis) (morganii) as the cause of diseases classified elsewhere; B95.61 Methicillin susceptible Staphylococcus aureus infection as the cause of diseases classified elsewhere; L89.611 Pressure ulcer of right heel, stage 1
CPT/HCPCS: 36415; 71045; 80048; 80053; 80202; 81003; 81015; 83605; 83735; 84100; 84484; 85025; 85610; 85730; 86140; 87040; 87070; 87077; 87086; 87186; 87205; 88307; 88311; 99291; A9270-GY; G8978-GP-CN; G8979-GP-CN; G8987-GO-CN; G8988-GO-CL; G8989-GO-CL; J0692; J1100; J1170; J1650; J1885; J2250; J2270; J2704; J3010; J3370; J3475; J3480; J3490